=== PATIENT | male | born 1950 | race Caucasian/White ===

== ENCOUNTER 2016-08-09 12:57 | Inpatient (IN) | payer MEDICAID, OTHER ==
[2016-08-09] MEDS ORDERED: Diazepam SYRINGE* 5 MG/ML SYRINGE IV ONE (13:57)
--- NOTE | 2016-08-09 13:59 | RAD ---
HISTORY: Altered mental status COMPARISONS: April 11, 2016 VIEWS:1: Single frontal portable view of the chest at 1:40 PM FINDINGS: LINES AND TUBES: None. CARDIOMEDIASTINAL SILHOUETTE: The cardiomediastinal silhouette is normal for portable technique. PLEURA: The costophrenic angles are sharp. No pleural abnormalities are noted. LUNG PARENCHYMA: The lungs are clear. ABDOMEN: The upper abdomen is clear. There is no subphrenic gas. BONES AND SOFT TISSUES: No bone or soft tissue abnormalities are noted. IMPRESSION: NO ACTIVE CARDIOPULMONARY DISEASE.
[2016-08-09 14:07] LABS: Hematocrit 47 % (42-52); Hemoglobin 16.6 g/dl (14.0-18.0); Mean Corpuscular HGB Conc 35 g/dl (31-36); Mean Corpuscular Hemoglobin 33 pg (27-31); Mean Corpuscular Volume 93 fL (80-94); Mean Platelet Volume 7 um3 (7.4-10.4); Red Blood Count 5.08 10^6/ul (4.0-5.4); Red Cell Distribution Width 14 % (10.5-15); White Blood Count 3.9 10^3/ul (3.5-10.8)
[2016-08-09 14:11] LABS: Comments Flag Yes
[2016-08-09] MEDS ORDERED: Thiamine IV* 100 MG, Folic Acid IV* 1 MG, Multiple Vitamin IV ADULT* 10 ML in NS 0.9% 1... IV ONE (14:20)
[2016-08-09 14:24] LABS: ALT 142 U/L (7-52); AST 202 U/L (13-39); Albumin 4.3 g/dL (3.2-5.2); Alkaline Phosphatase 117 U/L (34-104); Anion Gap 10 mmol/L (2-11); BUN/Creatinine Ratio 9.5 (8-20); Blood Urea Nitrogen 7 mg/dL (6-24); C Reactive Protein 2.71 mg/L (< 5.00); CO2 Carbon Dioxide 26 mmol/L (22-32); Calcium 9.9 mg/dL (8.6-10.3); Chloride 98 mmol/L (101-111); Creatine Kinase 351 U/L (10-223); EGFR African American 137.4 (>60); EGFR Non-African American 106.8 (>60); Globulin 3.1 g/dL (2-4); Glucose 126 mg/dL (70-100); Indirect Bilirubin 1.2 mg/dL (0.3-1.0); Potassium 3.9 mmol/L (3.5-5.0); Sodium 134 mmol/L (133-145); Total Protein 7.4 g/dL (6.4-8.9)
--- NOTE | 2016-08-09 14:28 | RAD ---
HISTORY: Altered mental status COMPARISONS: April 11, 2016 TECHNIQUE: Multiple contiguous axial CT scans were obtained of the head without intravenous contrast. FINDINGS: HEMORRHAGE/INFARCT: There is no hemorrhage or acute infarct. MASSES/SHIFT: There is no mass or shift. EXTRA-AXIAL SPACES: There are no extra-axial fluid collections. SULCI AND VENTRICLES: The sulci and ventricles are normal in size and position for the patient's stated age. CEREBRUM: There are no focal parenchymal abnormalities. BRAINSTEM: There are no focal parenchymal abnormalities. CEREBELLUM: There are no focal parenchymal abnormalities. VESSELS: There is calcification of the cavernous segments of the internal carotid arteries bilaterally and of the distal vertebral arteries bilaterally. PARANASAL SINUSES: The paranasal sinuses are clear. ORBITS: The orbits are unremarkable. BONES AND SOFT TISSUE: No bone or soft tissue abnormalities are noted. OTHER: None IMPRESSION: NO ACUTE INTRACRANIAL PATHOLOGY.
[2016-08-09 14:29] LABS: Troponin I 0.06 ng/mL (<0.04)
[2016-08-09 15:05] LABS: Acetaminophen < 15 mcg/mL; Alcohol < 10 mg/dL (<10); Salicylate < 2.50 mg/dL (<30)
[2016-08-09] MEDS ORDERED: Ondansetron INJ* 2 MG/ML VIAL IV PRN (15:54)
[2016-08-09] MEDS ORDERED: NS 0.9% 1000 ML* 1,000 ML IV SCH ×2 (16:00→16:13)
[2016-08-09] MEDS ORDERED: LORazepam TAB(*) 1 MG PO SCH (16:00)
--- NOTE | 2016-08-09 16:41 | ED ---
Rigoberto Parker Erika, scribed for Roel Medel MD on 08/09/16 at 1351 . Complex/Multi-Sys Presentation - HPI Summary HPI Summary: Patient is a 65-year-old male presenting to the ED with his mother with a CC of tremors. Patient reports that at 06:00 today, he fell down. Patient denies any lightheadedness or chest pain prior to the incident. Per mother, hit his head. Mother came out and found pt tremelous. Patient has had similar tremors in the past. She also states pt was diaphoretic and had chills. Patient crawled to the couch and rested for a few hours. Mother reports that pt then started shaking, made a noise, and was drooling, and that he then fell backwards into the couch. Mother states this episode appeared to be a seizure, but pt denies Hx seizures. She states pt could not talk after the episode, and pt states he does not remember this episode. Now patient states he feels okay. He denies headache and nausea. Patient denies recent cough, abdominal pain, diarrhea, urinary symptoms , or decreased appetite. Pt does not use home O2. Hx ND x2, denies stents or CABG. Patient reports he sometimes takes ASA. He denies taking another blood thinner. Mother reports pt took all of his daily medications this morning. He denies Hx DM, renal disease, liver disease, and pancreas disease. Per mother, patient drinks vodka daily. Patient reports he has not had EtOH since 2016 at night. Patient is followed by Dr. Parsons. - History Of Current Complaint Chief Complaint: EDAltMentalStatus Time Seen by Provider: 08/09/16 13:26 Hx Obtained From: Patient, Family/Manufacturers Agent - Mother Hx From Patient Unobtainable Due To: Altered Mental Status Onset/Duration: Sudden Onset, Lasting Hours, Still Present Timing: Constant Severity Currently: Moderate Associated Signs And Symptoms: Positive: Confusion, Weakness, Other - tremors, diaphoresis. Negative: Headache, Cough, Chest Pain, Nausea, Dysuria, Decreased Oral Intake - Allergies/Home Medications Allergies/Adverse Reactions: Allergies Allergy/AdvReac Type Severity Reaction Status Date / Time No Known Allergies Allergy Verified 06/28/13 14:02 PMH/Surg Hx/FS Hx/Imm Hx Endocrine/Hematology History: Denies: Hx Diabetes, Hx Systemic Lupus Erythematosus, Hx Thyroid Disease Cardiovascular History: Reports: Hx Hypertension Denies: Hx Congestive Heart Failure, Hx Hypercholesterolemia Respiratory History: Reports: Other Respiratory Problems/Disorders Denies: Hx Asthma, Hx Chronic Obstructive Pulmonary Disease (COPD) GI History: Denies: Hx Ulcer History: Reports: Other Problems/Disorders - prostate CA Denies: Hx Dialysis, Hx Renal Disease Musculoskeletal History: Denies: Hx Rheumatoid Arthritis Sensory History: Reports: Hx Contacts or Glasses - Reading glasses Opthamlomology History: Reports: Hx Contacts or Glasses - Reading glasses Psychiatric History: Reports: Hx Substance Abuse - ETOH - Cancer History Hx Chemotherapy: No - Surgical History Surgery Procedure, Year, and Place: HYDROCCELE REPAIRED EARLY 'S, LASER EYE SURGERY,PROSTATE BX Infectious Disease History: No Infectious Disease History: Denies: Hx Hepatitis, Hx Human Immunodeficiency Virus (HIV), Traveled Outside the [place] in Last 30 Days - Family History Known Family History: Positive: Cardiac Disease, Other - CVA - Social History Lives: With Family Alcohol Use: Daily Alcohol Amount: 12oz Vodka Hx Tobacco Use: Yes Smoking Status (MU): Heavy Every Day Tobacco Smoker Type: Cigarettes Amount Used/How Often: 1/2ppd Length of Time of Smoking/Using Tobacco: 40 Review of Systems Positive: Chills, Skin Diaphoresis Negative: Chest Pain Negative: Abdominal Pain, Diarrhea, Nausea Negative: dysuria Neurological: Other - Tremors, episode of shaking, drooling, falling backwards with memory loss Positive: Weakness - unable to walk. Negative: Headache All Other Systems Reviewed And Are Negative: Yes Physical Exam Triage Information Reviewed: Yes Vital Signs On Initial Exam: Initial Vitals Temp Pulse Resp BP Pulse Ox 98.1 F 92 20 141/95 87 08/09/16 13:23 08/09/16 13:23 08/09/16 13:23 08/09/16 13:23 08/09/16 13:23 Vital Signs Reviewed: Yes Appearance: Positive: Well-Appearing - Non-toxic, No Pain Distress, Well- Nourished Skin: Positive: Warm, Skin Color Reflects Adequate Perfusion, Soft Head/Face: Positive: Normal Head/Face Inspection Eyes: Positive: EOMI, HARVINDER - Pupils 6 mm and reactive, Conjunctiva Clear ENT: Positive: Pharynx normal, TMs normal Neck: Positive: Supple, Nontender Respiratory/Lung Sounds: Positive: Clear to Auscultation, Breath Sounds Present. Negative: Rales, Rhonchi, Wheezes Cardiovascular: Positive: RRR, Pulses are Symmetrical in both Upper and Lower Extremities. Negative: Murmur, Rub Abdomen Description: Positive: Nontender, No Organomegaly, Soft. Negative: Distended, Guarding, Peritoneal Signs Bowel Sounds: Positive: Present Musculoskeletal: Positive: Strength/ROM Intact Neurological: Positive: Other - Generalized tremor worse with movement. Tongue fasciculations. Pupils 6 mm and reactive Psychiatric: Positive: Affect/Mood Appropriate - Sally Coma Scale Coma Scale Total: 14 Diagnostics - Vital Signs Vital Signs Temp Pulse Resp BP Pulse Ox 08/09/16 13:29 98.2 F 92 20 141/95 87 08/09/16 13:23 98.1 F 92 20 141/95 87 - Laboratory Lab Results: Lab Results 08/09/16 08/09/16 08/09/16 Range/Units 14:00 14:00 14:00 WBC 3.9 (3.5-10.8) 10^3/ul RBC 5.08 (4.0-5.4) 10^6/ul Hgb 16.6 (14.0-18.0) g/dl Hct 47 (42-52) % MCV 93 (80-94) fL MCH 33 H (27-31) pg MCHC 35 (31-36) g/dl RDW 14 (10.5-15) % Plt Count 54 L (150-450) 10^3/ul MPV 7 L (7.4-10.4) um3 Sodium 134 (133-145) mmol/L Potassium 3.9 (3.5-5.0) mmol/L Chloride 98 L (101-111) mmol/L Carbon Dioxide 26 (22-32) mmol/L Anion Gap 10 (2-11) mmol/L BUN 7 (6-24) mg/dL Creatinine 0.74 (0.67-1.17) mg/dL Est GFR ( Amer) 137.4 (>60) Est GFR (Non-Af Amer) 106.8 (>60) BUN/Creatinine Ratio 9.5 (8-20) Glucose 126 H (70-100) mg/dL Lactic Acid (0.5-2.0) mmol/L Calcium 9.9 (8.6-10.3) mg/dL Total Bilirubin 2.00 H (0.2-1.0) mg/dL Direct Bilirubin 0.80 H (0.03-0.18) mg/dL Indirect Bilirubin 1.2 H (0.3-1.0) mg/dL AST 202 H (13-39) U/L ALT 142 H (7-52) U/L Alkaline Phosphatase 117 H (34-104) U/L Ammonia 61 H (16-53) mol/L Total Creatine Kinase 351 H (10-223) U/L CK-MB (CK-2) 8.6 H (0.6-6.3) ng/mL Troponin I 0.06 H* (<0.04) ng/mL C-Reactive Protein 2.71 (< 5.00) mg/L Total Protein 7.4 (6.4-8.9) g/dL Albumin 4.3 (3.2-5.2) g/dL Globulin 3.1 (2-4) g/dL Albumin/Globulin Ratio 1.4 (1-3) Salicylates Pending Acetaminophen Pending Serum Alcohol Pending 08/09/16 Range/Units 14:00 WBC (3.5-10.8) 10^3/ul RBC (4.0-5.4) 10^6/ul Hgb (14.0-18.0) g/dl Hct (42-52) % MCV (80-94) fL MCH (27-31) pg MCHC (31-36) g/dl RDW (10.5-15) % Plt Count (150-450) 10^3/ul MPV (7.4-10.4) um3 Sodium (133-145) mmol/L Potassium (3.5-5.0) mmol/L Chloride (101-111) mmol/L Carbon Dioxide (22-32) mmol/L Anion Gap (2-11) mmol/L BUN (6-24) mg/dL Creatinine (0.67-1.17) mg/dL Est GFR ( Amer) (>60) Est GFR (Non-Af Amer) (>60) BUN/Creatinine Ratio (8-20) Glucose (70-100) mg/dL Lactic Acid 2.9 H* (0.5-2.0) mmol/L Calcium (8.6-10.3) mg/dL Total Bilirubin (0.2-1.0) mg/dL Direct Bilirubin (0.03-0.18) mg/dL Indirect Bilirubin (0.3-1.0) mg/dL AST (13-39) U/L ALT (7-52) U/L Alkaline Phosphatase (34-104) U/L Ammonia (16-53) mol/L Total Creatine Kinase (10-223) U/L CK-MB (CK-2) (0.6-6.3) ng/mL Troponin I (<0.04) ng/mL C-Reactive Protein (< 5.00) mg/L Total Protein (6.4-8.9) g/dL Albumin (3.2-5.2) g/dL Globulin (2-4) g/dL Albumin/Globulin Ratio (1-3) Salicylates Acetaminophen Serum Alcohol Result Diagrams: 08/09/16 14:00 08/09/16 14:00 Lab Statement: Any lab studies that have been ordered have been reviewed, and results considered in the medical decision making process. - Radiology CXR Radiology Interpretation Completed By: Radiologist - IMPRESSION: NO ACTIVE CARDIOPULMONARY DISEASE. - CT Brain CT CT Interpretation Completed By: Radiologist - IMPRESSION: NO ACUTE INTRACRANIAL PATHOLOGY. - EKG 15:29 Cardiac Rate: NL - at 85 bpm EKG Rhythm: Sinus Rhythm EKG Interpretation: T wave inversions V4-V5. No acute ischemic changes Complex Multi-Symp Course/Dx Assessment/Plan: A 65 y/o M presents to the ED s/p possible seizure and tremors. Per mother, patient drinks vodka daily, and pt reports he has not had a drink since Tuesday night. Troponin is 0.06. Lactic is 2.9. Liver enzymes are abnormal. EKG shows NSR with T wave inversions V4-V5 and no acute ischemic changes. Brain CT is negative. Case is discussed with Dr. Pratt and patient will be admitted to the hospital for further work up and management. - Diagnoses Provider Diagnoses: Tremulousness, Alcohol withdrawal, Abnormal cardiac enzyme level, Abnormal liver enzymes, possible seizure - Physician Notifications Discussed Care Of Patient With: Dr. Pratt (hospitalist) at 15:26 - agrees to admit Discharge - Discharge Plan Condition: Stable Disposition: ADMITTED TO [facility] Referrals: Ruy Parsons MD [Primary Care Provider] - The documentation as recorded by the Rigoberto lee Erika accurately reflects the service I personally performed and the decisions made by Gianfranco bundy Afoma Frances, MD.
[2016-08-09] MEDS: LORazepam TAB(*) 1 MG PO SCH (18:05)
[2016-08-09] MEDS: Atorvastatin* 10 MG TAB PO SCH (18:09)
[2016-08-09] MEDS: Carvedilol TAB* 3.125 MG PO SCH (21:49)
[2016-08-09] MEDS: QUEtiapine XR TAB* 50 MG PO SCH (21:49)
[2016-08-09 21:56] LABS: BUN/Creatinine Ratio 12.5 (8-20); EGFR African American 141.8 (>60); EGFR Non-African American 110.3 (>60); Magnesium 2.2 mg/dL (1.9-2.7); Potassium 3.2 mmol/L (3.5-5.0)
--- NOTE | 2016-08-09 22:37 | HP ---
HISTORY AND PHYSICAL: DATE OF ADMISSION: 08/09/16 PRIMARY CARE PROVIDER: Dr. Parsons. ATTENDING PHYSICIAN WHILE IN THE HOSPITAL: Dr. Matthew Pratt* (report being dictated by Clayton Arriaga NP). CHIEF COMPLAINT: Altered mental status. HISTORY OF PRESENT ILLNESS: Mr. Mclaughlin is a 65-year-old male patient. He carries a history of ETOH abuse. In addition to this, has a history of coronary artery disease, cardiomyopathy. He also has a history of hypertension , coronary artery disease, history of prostate cancer and CHF. He comes in today. He states the last time he had a drink was on Tuesday. He typically says he drinks 3 to 4 times a week and when he does drink, he drinks about a third of a bottle at a time. He does not say how big that bottle is, but he does state that he makes his drinks pretty strong. He comes in. It was noted by his mother who lives with him today that he was more shaky than normal. He could barely use his walker. In fact, she had to help him crawl down the stairs to get him to a downstairs bedroom, where she sat him on the edge of the bed. The mother was helping him get breakfast. In addition to this, she went to get his medications and by the time she came back, she noticed that the patient was stiff, staring, had drool coming out of his mouth. He would not talk to her despite her trying to shake him and get his attention. She ran out of the room, called 911. By the time 911 got there, she thinks it may have been 15 minutes, he had started coming back around. He was talking, but the EMS people had noted that his speech appeared to be slow and he appeared to be a little bit confused. He came in to the hospital. The last thing the patient remembers from this morning was going downstairs and being in the bed and getting something to eat that his mother prepared for him. He does not recall the ambulance arrive. He does remember coming into the hospital and getting into the ER bed. He denied having any recent chest pain. No recent change to medications. He said the last drink he had was on Tuesday. He denies having any nausea, vomiting, or abdominal pain. There is no dysuria. Mother said that he did not lose consciousness, but he certainly was not responsive to her. There has been no recent report of fevers or chills. Again, no chest pain or any shortness of breath. The patient came into the ER, was evaluated here, was noted that he had several lab abnormalities. In addition to this, there was concern for possible ETOH withdrawal, so the hospitalist service was asked to evaluate in admission. PAST MEDICAL HISTORY: Significant for: 1. Hypertension. 2. CAD. 3. KS. 4. ETOH abuse. 5. CHF. 6. Cardiomyopathy, last EF was 35% to 40%. 7. Prostate cancer. REVIEW OF SYSTEMS: There is no documented fever. He denied having any significant weight change. There was no double vision. He denies having any ear discharge. There was no rhinorrhea. No sore throat. No thyroid enlargement. Denied having any chest pain. There was no orthopnea. There was no nocturnal dyspnea. No abdominal pain. No nausea. No vomiting. No dysuria. No frequency. There was no loss of consciousness. There is a question of seizure activity. Review of 14 systems completed, all others negative. PHYSICAL EXAMINATION GENERAL: At this time, Mr. Mclaughlin is a 65-year-old male patient. He is well developed, well nourished. He is sitting in the ER stretcher. Does not appear to be in any acute distress. VITAL SIGNS: Blood pressure 132/92 with a pulse of 84, respirations 20, O2 sat 95%, and temperature 98.2. HEENT: Head atraumatic. Eyes: Sclerae are anicteric and not pale. Throat: Oral mucosa appears to be dry. No oropharyngeal erythema. NECK: Supple. LUNGS: Clear to auscultation. No wheezes, rales, or rhonchi. HEART: Sounds S1, S2. Regular rate and rhythm. No murmurs, rubs, or gallops. ABDOMEN: Soft, flat, nontender. Bowel sounds present. EXTREMITIES: Pulses 2+ throughout. He does have a tremor noted. He is able to move all 4 extremities with 5/5 strength. NEUROLOGIC: He is awake, he is alert, he is oriented x3. His speech is clear. Tongue midline. Unindentured Apprentice are equal. No gross focal deficits. SKIN: Intact. LABORATORY DATA AND DIAGNOSTIC STUDIES: Today revealed WBC of 3.9, RBC of 5.08 , hemoglobin 16.6, hematocrit 47, platelet count 54,000. He has been thrombocytopenic in the past. Sodium was 134, potassium 3.9, chloride of 98, bicarb 26, BUN 7, creatinine 0.74 , glucose 126, lactic 2.9, calcium 9.9. Total bili 2, direct bili 0.8, indirect 1.2. AST 202, ALT 142, alk phos 117. Ammonia was 61. CK 351. CK-MB 8.6. Troponin 0.06. Albumin 4.3. Toxicology negative. He had a brain CT which revealed no acute intracranial pathology. He did have a chest x-ray which revealed no active cardiopulmonary disease. There was an EKG which revealed a normal sinus rhythm with a rate of 83. No ST elevations or T-wave inversions. It was reviewed with the previous EKG, appears to be similar. Last echo from 2014 shows an EF of 35% to 40%. He had a liver ultrasound just done in March 2016 which showed liver is echogenic consistent with a fatty infiltration capsule that is smooth in contour. Old medical records were reviewed. ASSESSMENT AND PLAN: Mr. Mclaughlin is a 65-year-old male patient coming into the ER today with complaints of altered mental status. The hospitalist service was asked to evaluate for admission. He will be admitted under inpatient status for : 1. Altered mental status: I suspect the episode that was described today by the mother was that he probably had a seizure, probably related to alcohol withdrawal. Again, I suspect that he drinks more than what he alludes to. The patient at this point is now awake, alert, and oriented x3, but he still does have some tremors and the mother did state that he was perspiring significantly. I think at this point we will put him on the WAM and give him banana bag, put him on multivitamin, folate, and thiamine and we will continue to monitor him closely and order seizure precautions and I will order an EEG for the procedure, but again, I suspect it is probably related from the ETOH use. I am also getting an INR as well to check the synthetic function of the liver. 2. Elevated LFTs: Again, probably secondary to ETOH use. He may have some alcoholic hepatitis. We will continue to follow these. If they do not trend down, I will repeat imaging. 3. Lactic acidosis: Could be related to the liver dysfunction. In addition to this, possible seizure. I will trend these. I do not think he is actively infected. We will hydrate him. We will follow. 4. Thrombocytopenia, probably secondary to bone suppression from the ETOH use: We will continue to monitor. 5. ETOH abuse: Due to get a social work consult and he will be on a [place] protocol. 6. History of coronary artery disease and cardiomyopathy: I will continue his MAC inhibitor and his beta yony. I am holding the aspirin because of the low platelets for now, we will continue the beta yony and statin as well. 7. Hypertension: Continue medications as prescribed. 8. DVT prophylaxis: I am going to avoid heparin and the fact that the patient does have significant thrombocytopenia, we will monitor. No active signs of bruising were noted and we will continue just SCDs for the time being. 9. History of congestive heart failure: He does not appear to be in failure. We will monitor. 10. Fluids, electrolytes, and nutrition: He can have a heart healthy diet. 11. Code status: Full code. TIME SPENT: Time spent on the admission was 60 minutes; greater than half the time was spent [id number] with the patient obtaining my history and physical, other half the time spent going over the plan of care with the patient and implementing plan of care. I did discuss the plan of care with my attending, Dr. Pratt; he is in agreement. CLAYTON ARRIAGA NP CC: Dr. Parsons* [id number]/[id number] #: [id number] MARGOTH
[2016-08-10] MEDS: LORazepam TAB(*) 1 MG PO SCH ×3 (00:14→20:24)
[2016-08-10] MEDS: KCL 20 MEQ/100 ML IVPREMIX* 20 MEQ/100 ML BAG IV SCH ×2 (00:14→04:28)
[2016-08-10 06:45] LABS: Hematocrit 45 % (42-52); Hemoglobin 15.2 g/dl (14.0-18.0); Mean Corpuscular HGB Conc 34 g/dl (31-36); Mean Corpuscular Hemoglobin 33 pg (27-31); Mean Corpuscular Volume 96 fL (80-94); Mean Platelet Volume 8 um3 (7.4-10.4); Red Blood Count 4.63 10^6/ul (4.0-5.4); Red Cell Distribution Width 14 % (10.5-15); White Blood Count 4.3 10^3/ul (3.5-10.8)
[2016-08-10 06:47] LABS: Comments Flag Yes
[2016-08-10 07:05] LABS: Albumin 3.8 g/dL (3.2-5.2); BUN/Creatinine Ratio 14.3 (8-20); Direct Bilirubin 0.7 mg/dL (0.03-0.18); EGFR African American 146.5 (>60); EGFR Non-African American 113.9 (>60); Globulin 2.6 g/dL (2-4); Indirect Bilirubin 1.1 mg/dL (0.3-1.0); Potassium 3.7 mmol/L (3.5-5.0); Total Bilirubin 1.8 mg/dL (0.2-1.0); Total Protein 6.4 g/dL (6.4-8.9)
[2016-08-10] MEDS: Folic Acid TAB* 1 MG PO SCH (08:43)
[2016-08-10] MEDS: Carvedilol TAB* 3.125 MG PO SCH ×2 (08:43→20:24)
[2016-08-10] MEDS: Multivitamins/Minerals TAB PO SCH (08:43)
[2016-08-10] MEDS: Magnesium Oxide TAB* 400 MG PO SCH (08:44)
[2016-08-10] MEDS: Lisinopril TAB* 5 MG PO SCH (08:44)
[2016-08-10] MEDS: Thiamine TAB* 100 MG TAB PO SCH (08:44)
[2016-08-10] MEDS ORDERED: Multivitamins/Minerals TAB PO SCH (09:00)
[2016-08-10] MEDS ORDERED: Potassium Chlor TAB* 20 MEQ TAB.ER PO ONE (09:56)
--- NOTE | 2016-08-10 10:11 | PN ---
Subjective Date of Service: 08/10/16 Interval History: NSVT noted on tele overnight/this AM Patient seen this morning. States he is in the hospital because of tremor which was making it difficult to do ADLs at home such as cooking and feeding himself. Relayed that there was concern about a possible seizure yesterday AM but he has no recollection. Denies any history of seizures (although noted from notes from previous hospitalizations). Reports last drink was late afternoon 08/07, states he "only had a few beers". Thinks tremor is somewhat better today. Taking good PO, no N/V. Family History: Unchanged from Admission Social History: Unchanged from Admission Past Medical History: Unchanged from Admission Objective Active Medications: Atorvastatin Calcium (Lipitor*) 10 mg PO QPM SALOME Carvedilol (Coreg Tab*) 3.125 mg PO BID SALOME Folic Acid (Folvite Tab*) 1 mg PO DAILY SALOME Sodium Chloride (Ns 0.9% 1000 Ml*) 1,000 mls @ 75 mls/hr IV PER RATE SALOME Lisinopril (Prinivil Tab*) 2.5 mg PO DAILY SALOME Lorazepam (Ativan Tab(*)) 0 mg PO .PER WAM SCORE SALOME Lorazepam (Ativan Tab(*)) 2 mg PO Q12H SALOME Magnesium Oxide (Magox 400 Tab*) 400 mg PO DAILY SALOME Multivitamins/Minerals (Theragran/Minerals Tab*) 1 tab PO DAILY SALOME Ondansetron HCl (Zofran Inj*) 4 mg IV Q6H PRN Quetiapine Fumarate (Seroquel Xr Tab*) 50 mg PO BEDTIME SALOME Thiamine HCl (Vitamin B-1 Tab*) 100 mg PO DAILY SALOME Vital Signs 08/09/16 08/09/16 08/09/16 15:54 16:00 16:02 Temperature Pulse Rate 80 87 87 Respiratory 14 18 19 Rate Blood Pressure 113/83 131/88 (mmHg) O2 Sat by Pulse 96 93 95 Oximetry 08/10/16 08/10/16 08/10/16 07:51 08:34 09:58 Temperature 97.8 F Pulse Rate 87 Respiratory 18 16 20 Rate Blood Pressure 130/96 (mmHg) O2 Sat by Pulse 96 Oximetry Oxygen Devices in Use Now: None Appearance: Middle-aged, M, sitting in bed in NAD Eyes: No Scleral Icterus Ears/Nose/Mouth/Throat: Mucous Membranes Moist Neck: NL Appearance and Movements; NL JVP Respiratory: Symmetrical Chest Expansion and Respiratory Effort, Clear to Auscultation Cardiovascular: NL Sounds; No Murmurs; No JVD, RRR Abdominal: NL Sounds; No Tenderness; No Distention, No Hepatosplenomegaly Lymphatic: No Cervical Adenopathy Extremities: No Edema Skin: No Rash or Ulcers Neurological: - - Alert, oriented, no focal deficits, notable tremor in B/L hands, no tongue fasciculations Result Diagrams: 08/10/16 06:17 08/10/16 06:17 Additional Lab and Data: Lab Results 08/09/16 08/09/16 08/09/16 Range/Units 14:00 14:00 14:00 WBC 3.9 (3.5-10.8) 10^3/ul RBC 5.08 (4.0-5.4) 10^6/ul Hgb 16.6 (14.0-18.0) g/dl Hct 47 (42-52) % MCV 93 (80-94) fL MCH 33 H (27-31) pg MCHC 35 (31-36) g/dl RDW 14 (10.5-15) % Plt Count 54 L (150-450) 10^3/ul MPV 7 L (7.4-10.4) um3 Sodium 134 (133-145) mmol/L Potassium 3.9 (3.5-5.0) mmol/L Chloride 98 L (101-111) mmol/L Carbon Dioxide 26 (22-32) mmol/L Anion Gap 10 (2-11) mmol/L BUN 7 (6-24) mg/dL Creatinine 0.74 (0.67-1.17) mg/dL Est GFR ( Amer) 137.4 (>60) Est GFR (Non-Af Amer) 106.8 (>60) BUN/Creatinine Ratio 9.5 (8-20) Glucose 126 H (70-100) mg/dL Lactic Acid (0.5-2.0) mmol/L Calcium 9.9 (8.6-10.3) mg/dL Total Bilirubin 2.00 H (0.2-1.0) mg/dL Direct Bilirubin 0.80 H (0.03-0.18) mg/dL Indirect Bilirubin 1.2 H (0.3-1.0) mg/dL AST 202 H (13-39) U/L ALT 142 H (7-52) U/L Alkaline Phosphatase 117 H (34-104) U/L Ammonia 61 H (16-53) mol/L Total Creatine Kinase 351 H (10-223) U/L CK-MB (CK-2) 8.6 H (0.6-6.3) ng/mL Troponin I 0.06 H* (<0.04) ng/mL C-Reactive Protein 2.71 (< 5.00) mg/L Total Protein 7.4 (6.4-8.9) g/dL Albumin 4.3 (3.2-5.2) g/dL Globulin 3.1 (2-4) g/dL Albumin/Globulin Ratio 1.4 (1-3) Salicylates Pending Acetaminophen Pending Serum Alcohol Pending 08/09/16 Range/Units 14:00 WBC (3.5-10.8) 10^3/ul RBC (4.0-5.4) 10^6/ul Hgb (14.0-18.0) g/dl Hct (42-52) % MCV (80-94) fL MCH (27-31) pg MCHC (31-36) g/dl RDW (10.5-15) % Plt Count (150-450) 10^3/ul MPV (7.4-10.4) um3 Sodium (133-145) mmol/L Potassium (3.5-5.0) mmol/L Chloride (101-111) mmol/L Carbon Dioxide (22-32) mmol/L Anion Gap (2-11) mmol/L BUN (6-24) mg/dL Creatinine (0.67-1.17) mg/dL Est GFR ( Amer) (>60) Est GFR (Non-Af Amer) (>60) BUN/Creatinine Ratio (8-20) Glucose (70-100) mg/dL Lactic Acid 2.9 H* (0.5-2.0) mmol/L Calcium (8.6-10.3) mg/dL Total Bilirubin (0.2-1.0) mg/dL Direct Bilirubin (0.03-0.18) mg/dL Indirect Bilirubin (0.3-1.0) mg/dL AST (13-39) U/L ALT (7-52) U/L Alkaline Phosphatase (34-104) U/L Ammonia (16-53) mol/L Total Creatine Kinase (10-223) U/L CK-MB (CK-2) (0.6-6.3) ng/mL Troponin I (<0.04) ng/mL C-Reactive Protein (< 5.00) mg/L Total Protein (6.4-8.9) g/dL Albumin (3.2-5.2) g/dL Globulin (2-4) g/dL Albumin/Globulin Ratio (1-3) Salicylates Acetaminophen Serum Alcohol Assess/Plan/Problems-Billing Assessment: EtOH withdrawal with possible seizure, EtOH hepatitis in a 65 yo M with hx of HTN, CAD s/p NE, cardiomyopathy (last EF 35-40% in 11/2014), EtOH abuse - Patient Problems (1) Alcohol withdrawal Current Visit: No Comment: Suspect patient drinks more than he admits to, states last drink 08/07 in the afteroon. Continue WAM protocol. Continue Ativan taper and additional prn ativan. Continue thiamine, folate, MVM. EEG pending, ? seizure SW consult pending. (2) Elevated LFTs Current Visit: No Comment: Likely EtOH hepatitis. Trending down, no need to follow further (3) NSVT (nonsustained ventricular tachycardia) Current Visit: Yes Comment: Replete K, recheck in AM. Continue tele. On beta- yony. (4) Thrombocytopenia Current Visit: No Comment: Likely due to EtOH use. Stable. Continue to monitor. (5) Coronary artery disease Current Visit: No Comment: Cardiomyopathy. Resume ASA, platelets stable. Continue Coreg and Atorvastatin. Minimal troponin elevation, no chest pain. (6) DVT prophylaxis Current Visit: No Comment: SCDs Status and Disposition: Inpatient for EtOH withdrawal. Possible discharge in next 24-48 hours.
[2016-08-10] MEDS: Aspirin EC Low Dose* 81 MG TAB.EC PO SCH (10:30)
[2016-08-10] MEDS: Atorvastatin* 10 MG TAB PO SCH (17:18)
[2016-08-10] MEDS: QUEtiapine XR TAB* 50 MG PO SCH (20:24)
--- NOTE | 2016-08-11 01:16 | EEG ---
ELECTROENCEPHALOGRAPHY: DATE OF STUDY: 08/10/16 ORDERING PHYSICIAN: Clayton Arriaga NP LOCATION: The patient is an inpatient. CLINICAL PROBLEM: This is a 65-year-old man who came to the emergency department on 08/09/16 with altered mental status. His mother states he was more shaky than normal and could barely use his walker. She left him briefly sitting on the edge of his bed and when she came back she noticed he was stiff, staring, and had drool coming out of his mouth. He would not speak to her. She called the 911 and when the EMS got there, he began to come around. He is here with alcohol withdrawal. EEG is requested to evaluate epileptiform abnormalities. MEDICATIONS: 1. Zofran. 2. Seroquel. 3. Lipitor. 4. Vitamin B. 5. Multivitamin. 6. Magnesium oxide. 7. Lisinopril. 8. Folate. 9. Coreg. 10. Ativan. REPORT: The waking background showed appropriate organization with clearly defined [id number] voltage and frequency gradients. There was a well -defined posterior dominant rhythm of 8.5 Hz, which was symmetrical and showed normal reactivity. Often, the posterior dominant rhythm was slower in the range of 8 Hz. Anteriorly, there was an expected pattern of low voltage, irregular, mixed faster frequencies. Photic stimulation and hyperventilation were not performed. Attenuation of the occipital rhythm accompanied drowsiness. The sleep background was appropriately organized with well-developed sleep spindles and vertex waves. The sleep transients showed appropriate morphology and were bilaterally synchronous and symmetrical. Throughout the recording, there were no epileptiform discharges, focal features , paroxysmal features, or significant interhemispheric asymmetries. CLINICAL IMPRESSION: This is an essentially normal waking and sleep EEG. There are no epileptiform abnormalities. [id number]/[id number] #: [id number] [facility]
[2016-08-11 06:22] LABS: Comments Flag Yes; Hematocrit 44 % (42-52); Hemoglobin 15.2 g/dl (14.0-18.0); Mean Corpuscular HGB Conc 35 g/dl (31-36); Mean Corpuscular Hemoglobin 33 pg (27-31); Mean Corpuscular Volume 95 fL (80-94); Mean Platelet Volume 8 um3 (7.4-10.4); Red Blood Count 4.65 10^6/ul (4.0-5.4); Red Cell Distribution Width 14 % (10.5-15)
[2016-08-11 06:44] LABS: BUN/Creatinine Ratio 18.6 (8-20); Calcium 8.9 mg/dL (8.6-10.3); EGFR African American 146.5 (>60); EGFR Non-African American 113.9 (>60); Potassium 3.4 mmol/L (3.5-5.0)
[2016-08-11] MEDS: Lisinopril TAB* 5 MG PO SCH (08:16)
[2016-08-11] MEDS: Potassium Chlor TAB* 20 MEQ TAB.ER PO SCH ×3 (08:16→12:20)
[2016-08-11] MEDS: Carvedilol TAB* 3.125 MG PO SCH ×2 (08:17→20:53)
[2016-08-11] MEDS: Magnesium Oxide TAB* 400 MG PO SCH (08:18)
[2016-08-11] MEDS: Thiamine TAB* 100 MG TAB PO SCH (08:18)
[2016-08-11] MEDS: Aspirin EC Low Dose* 81 MG TAB.EC PO SCH (08:18)
[2016-08-11] MEDS: Multivitamins/Minerals TAB PO SCH (08:18)
[2016-08-11] MEDS: LORazepam TAB(*) 1 MG PO SCH (08:18)
[2016-08-11] MEDS: Folic Acid TAB* 1 MG PO SCH (08:18)
--- NOTE | 2016-08-11 09:51 | PN ---
Subjective Date of Service: 08/11/16 Interval History: Patient seen this morning. Denies any new symptoms. Thinks tremor is improving. Declined treatment programs yesterday because he doesn't "trust the government" . Does not think he drinks too much. Family History: Unchanged from Admission Social History: Unchanged from Admission Past Medical History: Unchanged from Admission Objective Active Medications: Aspirin (Aspirin Ec Low Dose*) 81 mg PO DAILY SALOME Atorvastatin Calcium (Lipitor*) 10 mg PO QPM SALOME Carvedilol (Coreg Tab*) 3.125 mg PO BID SALOME Folic Acid (Folvite Tab*) 1 mg PO DAILY SALOME Lisinopril (Prinivil Tab*) 2.5 mg PO DAILY SALOME Lorazepam (Ativan Tab(*)) 0 mg PO .PER WAM SCORE SALOME Lorazepam (Ativan Tab(*)) 2 mg PO Q12H SALOME Magnesium Oxide (Magox 400 Tab*) 400 mg PO DAILY SALOME Multivitamins/Minerals (Theragran/Minerals Tab*) 1 tab PO DAILY SALOME Ondansetron HCl (Zofran Inj*) 4 mg IV Q6H PRN Potassium Chloride (Klor Con Er Tab*) 40 meq PO Q2H SALOME Quetiapine Fumarate (Seroquel Xr Tab*) 50 mg PO BEDTIME SALOME Thiamine HCl (Vitamin B-1 Tab*) 100 mg PO DAILY [facility] Vital Signs 08/10/16 08/10/16 08/10/16 09:58 10:36 11:58 Temperature 97.7 F Pulse Rate 76 Respiratory 20 20 16 Rate Blood Pressure 127/78 (mmHg) O2 Sat by Pulse 96 Oximetry 08/11/16 08/11/16 08/11/16 04:04 07:54 08:00 Temperature 97.6 F 98.3 F Pulse Rate 77 74 Respiratory 20 16 18 Rate Blood Pressure 141/85 139/89 (mmHg) O2 Sat by Pulse 93 95 Oximetry Oxygen Devices in Use Now: None Appearance: Middle-aged, M, laying in bed in NAD Eyes: No Scleral Icterus Ears/Nose/Mouth/Throat: Mucous Membranes Moist Neck: NL Appearance and Movements; NL JVP Respiratory: Symmetrical Chest Expansion and Respiratory Effort, Clear to Auscultation Cardiovascular: NL Sounds; No Murmurs; No JVD, RRR Abdominal: NL Sounds; No Tenderness; No Distention Lymphatic: No Cervical Adenopathy Extremities: No Edema Skin: No Rash or Ulcers Neurological: Alert and Oriented x 3, - - Mild tremor in outstretched hands Result Diagrams: 08/11/16 05:47 08/11/16 05:47 Additional Lab and Data: Lab Results 08/09/16 08/09/16 08/09/16 Range/Units 14:00 14:00 14:00 WBC 3.9 (3.5-10.8) 10^3/ul RBC 5.08 (4.0-5.4) 10^6/ul Hgb 16.6 (14.0-18.0) g/dl Hct 47 (42-52) % MCV 93 (80-94) fL MCH 33 H (27-31) pg MCHC 35 (31-36) g/dl RDW 14 (10.5-15) % Plt Count 54 L (150-450) 10^3/ul MPV 7 L (7.4-10.4) um3 Sodium 134 (133-145) mmol/L Potassium 3.9 (3.5-5.0) mmol/L Chloride 98 L (101-111) mmol/L Carbon Dioxide 26 (22-32) mmol/L Anion Gap 10 (2-11) mmol/L BUN 7 (6-24) mg/dL Creatinine 0.74 (0.67-1.17) mg/dL Est GFR ( Amer) 137.4 (>60) Est GFR (Non-Af Amer) 106.8 (>60) BUN/Creatinine Ratio 9.5 (8-20) Glucose 126 H (70-100) mg/dL Lactic Acid (0.5-2.0) mmol/L Calcium 9.9 (8.6-10.3) mg/dL Total Bilirubin 2.00 H (0.2-1.0) mg/dL Direct Bilirubin 0.80 H (0.03-0.18) mg/dL Indirect Bilirubin 1.2 H (0.3-1.0) mg/dL AST 202 H (13-39) U/L ALT 142 H (7-52) U/L Alkaline Phosphatase 117 H (34-104) U/L Ammonia 61 H (16-53) mol/L Total Creatine Kinase 351 H (10-223) U/L CK-MB (CK-2) 8.6 H (0.6-6.3) ng/mL Troponin I 0.06 H* (<0.04) ng/mL C-Reactive Protein 2.71 (< 5.00) mg/L Total Protein 7.4 (6.4-8.9) g/dL Albumin 4.3 (3.2-5.2) g/dL Globulin 3.1 (2-4) g/dL Albumin/Globulin Ratio 1.4 (1-3) Salicylates Pending Acetaminophen Pending Serum Alcohol Pending 08/09/16 Range/Units 14:00 WBC (3.5-10.8) 10^3/ul RBC (4.0-5.4) 10^6/ul Hgb (14.0-18.0) g/dl Hct (42-52) % MCV (80-94) fL MCH (27-31) pg MCHC (31-36) g/dl RDW (10.5-15) % Plt Count (150-450) 10^3/ul MPV (7.4-10.4) um3 Sodium (133-145) mmol/L Potassium (3.5-5.0) mmol/L Chloride (101-111) mmol/L Carbon Dioxide (22-32) mmol/L Anion Gap (2-11) mmol/L BUN (6-24) mg/dL Creatinine (0.67-1.17) mg/dL Est GFR ( Amer) (>60) Est GFR (Non-Af Amer) (>60) BUN/Creatinine Ratio (8-20) Glucose (70-100) mg/dL Lactic Acid 2.9 H* (0.5-2.0) mmol/L Calcium (8.6-10.3) mg/dL Total Bilirubin (0.2-1.0) mg/dL Direct Bilirubin (0.03-0.18) mg/dL Indirect Bilirubin (0.3-1.0) mg/dL AST (13-39) U/L ALT (7-52) U/L Alkaline Phosphatase (34-104) U/L Ammonia (16-53) mol/L Total Creatine Kinase (10-223) U/L CK-MB (CK-2) (0.6-6.3) ng/mL Troponin I (<0.04) ng/mL C-Reactive Protein (< 5.00) mg/L Total Protein (6.4-8.9) g/dL Albumin (3.2-5.2) g/dL Globulin (2-4) g/dL Albumin/Globulin Ratio (1-3) Salicylates Acetaminophen Serum Alcohol Assess/Plan/Problems-Billing Assessment: EtOH withdrawal with possible seizure, EtOH hepatitis in a 65 yo M with hx of HTN, CAD s/p DC, cardiomyopathy (last EF 35-40% in 11/2014), EtOH abuse - Patient Problems (1) Alcohol withdrawal Current Visit: No Comment: Suspect patient drinks more than he admits to, states last drink 08/07 in the afteroon. Continue WAM protocol. Will stop taper and see how patient does on prn Ativan only. Continue thiamine, folate, MVM. EEG WNL. Appreciate SW consult, patient not interested in treatment at this time. (2) Elevated LFTs Current Visit: No Comment: Likely EtOH hepatitis. Trending down, no need to follow further (3) NSVT (nonsustained ventricular tachycardia) Current Visit: Yes Comment: Brief episode this AM. Replete K this morning. Mg stable. On beta-yony. (4) Thrombocytopenia Current Visit: No Comment: Likely due to EtOH use. Stable. Continue to monitor. (5) Coronary artery disease Current Visit: No Comment: Cardiomyopathy. Continue ASA, Coreg and Atorvastatin. (6) DVT prophylaxis Current Visit: No Comment: SCDs Status and Disposition: Inpatient for EtOH withdrawal. Possible discharge in next 24-48 hours.
[2016-08-11] MEDS: Atorvastatin* 10 MG TAB PO SCH (17:39)
[2016-08-11] MEDS: QUEtiapine XR TAB* 50 MG PO SCH (20:53)
[2016-08-12 07:52] LABS: BUN/Creatinine Ratio 19.4 (8-20); Calcium 9.1 mg/dL (8.6-10.3); EGFR African American 141.8 (>60); EGFR Non-African American 110.3 (>60); Potassium 4.1 mmol/L (3.5-5.0)
[2016-08-12 08:20] VITALS: BP 110/72
[2016-08-12] MEDS: Aspirin EC Low Dose* 81 MG TAB.EC PO SCH (08:39)
[2016-08-12] MEDS: Lisinopril TAB* 5 MG PO SCH (08:40)
[2016-08-12] MEDS: Multivitamins/Minerals TAB PO SCH (08:40)
[2016-08-12] MEDS: Carvedilol TAB* 3.125 MG PO SCH (08:40)
[2016-08-12] MEDS: Thiamine TAB* 100 MG TAB PO SCH (08:40)
[2016-08-12] MEDS: Folic Acid TAB* 1 MG PO SCH (08:40)
[2016-08-12] MEDS: Magnesium Oxide TAB* 400 MG PO SCH (08:40)
--- NOTE | 2016-08-12 09:30 | DCNOTE ---
Patient seen this morning. Says he feels well. Still a bit tremulous but improved, suspect this may be his baseline. Explained to him the importance of cessation from alcohol, still not interested in any treatment programs. On exam, RRR, s1 and s2 present, no m/g/r, abd soft, NTND, BS+, mild tremor in outstretched hands. Ambulated around the unit with walker which he has at home. Will discharge home today. F/U with PCP as outpatient.
--- NOTE | 2016-08-12 22:07 | DS ---
CC: Dr. Parsons DISCHARGE SUMMARY: DATE OF ADMISSION: 08/09/16 DATE OF DISCHARGE: 08/12/16 PCP: Dr. Parsons. PRINCIPAL DISCHARGE DIAGNOSIS: Possible alcohol withdrawal seizure. SECONDARY DIAGNOSES: 1. Hypertension. 2. Coronary artery disease. 3. Status post myocardial infarction. 4. Congestive heart failure. 5. Cardiomyopathy with an EF of 35% to 40%. 6. Prostate cancer. DISCHARGE MEDICATION REGIMEN: 1. Thiamine 100 mg by mouth daily. 2. Multivitamin 1 tablet by mouth daily. 3. Coreg 3.125 mg by mouth 2 times daily. 4. Atorvastatin 10 mg by mouth nightly. 5. Aspirin 81 mg by mouth daily. 6. Seroquel 50 mg by mouth at bedtime. 7. Magnesium oxide 400 mg by mouth daily. 8. Lisinopril 2.5 mg by mouth daily. 9. Folic acid 1 mg by mouth daily. STUDIES DONE DURING HOSPITALIZATION: Chest x-ray. Impression: No active cardiopulmonary disease. CTA of the brain without contrast. Impression: No acute intracranial pathology. EEG. Clinical impression: This is an essentially normal waking and sleeping EEG. HPI AND HOSPITAL SUMMARY: Please see the full history and physical by Clayton Arriaga NP for full de tails. Briefly, Mr. Mclaughlin is a 65-year-old male with a past medical history as above who presented to the hospital after he appeared to be more shaky than usual at home and his mother stated, he had an unresponsive episode, seems that this may have lasted about 15 minutes or so and then he began to come around. By the time he came into the hospital, he seemed to be back to baseline. It seems th at the patient likely minimizes his drinking. I believe he has a chronic tremor. However, it seeme d that he was having some withdrawal symptoms here in the hospital. In addition to that, he was alesia ated for alcohol withdrawal. He received Ativan taper as well as p.r.n. as needed for withdrawal sy mptoms. Over the following days, his symptoms improved. The patient was noted to have some few epi sodes of NSVT. His potassium and magnesium was repleted. He was continued on his beta-yony. The patient was seen by Social Work and was offered assistance with services, rehab opportunities, h owever the patient declined. I discussed this further with him and he still declined. I stressed i mportance of him stopping, drinking. However, he states that he just feels he does not drink too mu ch. The patient will be discharged home where he lives with his mother. He was ambulating around t he unit with his walker which he uses at home and seemed to be back to his baseline. The patient wi ll need to follow up with his PCP as an outpatient. TIME SPENT: Total time spent on this discharge 40 minutes. This is the summary of the hospitalization, please see the full medical record for further details. [id number] #: [id number]
== END 2016-08-12 10:10 | disposition home or self-care (01) | DRG 775 ==
LOC: ED 12:57 → MEDTELE 15:50
PROVIDERS: ADMIT Internal Medicine; ATTEND Hospitalist
PROC: 4A10X4Z Monitoring of Central Nervous Electrical Activity, External Approach (ICD-10-PCS; principal; 2016-08-10)
DX: F10.239 Alcohol dependence with withdrawal, unspecified (principal); I47.2 Ventricular tachycardia; I42.9 Cardiomyopathy, unspecified; E87.2 Acidosis; I11.0 Hypertensive heart disease with heart failure; I50.9 Heart failure, unspecified; D69.6 Thrombocytopenia, unspecified; I25.2 Old myocardial infarction; Z85.46 Personal history of malignant neoplasm of prostate; Z82.49 Family history of ischemic heart disease and other diseases of the circulatory system; Z82.3 Family history of stroke; F17.210 Nicotine dependence, cigarettes, uncomplicated; I25.10 Atherosclerotic heart disease of native coronary artery without angina pectoris; K70.10 Alcoholic hepatitis without ascites; Y90.9 Presence of alcohol in blood, level not specified; Z79.82 Long term (current) use of aspirin; R25.1 Tremor, unspecified
CPT/HCPCS: 36415; 70450; 71010; 80048; 80076; 80320; 80329; 82140; 82550; 82553; 83605; 83735; 84484; 85025; 85027; 85610; 86140; 93005; 94760; 95819; A9270-GY; G0480; J3360; J3480

== ENCOUNTER 2020-03-27 02:22 | Inpatient (IN) ==
[2020-03-27] MEDS ORDERED: NS 0.9% 1000 ml BAG 1,000 ML IV ONE (03:04)
[2020-03-27] MEDS ORDERED: Thiamine 100 MG/ML 2 ml VIAL (200 mg) IM ONE (03:09)
[2020-03-27 03:32] LABS: INR 1.05 (0.82-1.09)
[2020-03-27 03:42] LABS: Alcohol, S 37 mg/dL (<10)
[2020-03-27 03:44] LABS: ALT 207 U/L (7-52); AST 430 U/L (13-39); Albumin 4.1 g/dL (3.2-5.2); Albumin/Globulin Ratio 1.7 (1-3); Alkaline Phosphatase 91 U/L (34-104); Anion Gap 21 mmol/L (2-11); BUN/Creatinine Ratio 15.2 (8-20); Blood Urea Nitrogen 12 mg/dL (6-24); CO2 Carbon Dioxide 19 mmol/L (22-32); Calcium 9.3 mg/dL (8.6-10.3); Chloride 91 mmol/L (101-111); EGFR African American 118.4 (>60); EGFR Non-African American 97.8 (>60); Globulin 2.4 g/dL (2-4); Glucose 86 mg/dL (70-100); Magnesium 1.9 mg/dL (1.9-2.7); Potassium 3.4 mmol/L (3.5-5.0); Sodium 131 mmol/L (135-145); Total Protein 6.5 g/dL (6.4-8.9)
[2020-03-27 03:49] LABS: ABS Lymphocytes 1.1 10^3/ul (1.0-4.8); ABS Monocytes 0.4 10^3/ul (0-0.8); ABS Neutrophils 3.7 10^3/ul (1.5-7.7); Eosinophil % 0.5 %; Hematocrit 43 % (42-52); Hemoglobin 15.1 g/dL (14.0-18.0); Lymphocyte % 20.3 %; Mean Corpuscular HGB Conc 35 g/dL (31-36); Mean Corpuscular Hemoglobin 33 pg (27-31); Mean Corpuscular Volume 94 fL (80-94); Mean Platelet Volume 7.2 fL (7.4-10.4); Nucleated Red Blood Cells % 0.2; Platelet Count 92 10^3/uL (150-450); Red Blood Count 4.58 10^6 /uL (4.18-5.48); Red Cell Distribution Width 13 % (10-15); Troponin I 0.07 ng/mL (<0.03); White Blood Count 5.2 10^3/uL (3.5-10.8)
[2020-03-27] MEDS ORDERED: LORazepam 2 mg VIAL 1 ml IV PUSH ONE ×2 (03:51→03:56)
[2020-03-27] MEDS ORDERED: Lorazepam PYXIS KEY PRN ×2 (03:51→03:56)
[2020-03-27] MEDS ORDERED: Lorazepam PYXIS KEY ONE (03:54)
[2020-03-27 06:35] LABS: Urine Appearance Clear; Urine Bilirubin Negative (Negative); Urine Blood 1+ (Negative); Urine Color Yellow; Urine Glucose Negative (Negative); Urine Ketones 1+ (Negative); Urine Nitrite Negative (Negative); Urine Protein Negative (Negative); Urine Specific Gravity 1.003 (1.010-1.030); Urine Urobilinogen Negative (Negative)
[2020-03-27 06:43] LABS: Urine Bacteria Absent (Absent); Urine Red Blood Cell Trace(0-2/hpf) (Absent); Urine White Blood Cell Trace(0-5/hpf) (Absent)
[2020-03-27 06:46] LABS: Troponin I 0.07 ng/mL (<0.03)
[2020-03-27] MEDS ORDERED: NS 0.9% w/ 20 Meq KCL 1000 ml 1,000 ML IV SCH (10:00)
[2020-03-27] MEDS ORDERED: Perflutren Lipid Microsphere 3 ML VIAL ONE (10:08)
[2020-03-27 11:17] LABS: Lipase 137 U/L (11.0-82.0)
[2020-03-27 11:22] LABS: Troponin I 0.07 ng/mL (<0.03)
[2020-03-27] MEDS ORDERED: Regadenoson 0.4 MG/5 ML SYRINGE ONE (11:28)
[2020-03-27] MEDS ORDERED: Aminophylline 25 MG/ML VIAL ONE (11:28)
[2020-03-27] MEDS: Multivitamins/Minerals TAB PO SCH (13:27)
[2020-03-27] MEDS: Heparin 5000 UNITS/ML 1 mL VIAL SUBCUT SCH ×2 (14:02→20:16)
[2020-03-28] MEDS: Heparin 5000 UNITS/ML 1 mL VIAL SUBCUT SCH ×3 (05:26→22:01)
[2020-03-28 06:39] LABS: ABS Eosinophils 0.1 10^3/ul (0-0.6); ABS Lymphocytes 1.2 10^3/ul (1.0-4.8); ABS Monocytes 0.3 10^3/ul (0-0.8); ABS Neutrophils 3.3 10^3/ul (1.5-7.7); Eosinophil % 2.9 %; Hematocrit 40 % (42-52); Hemoglobin 14.1 g/dL (14.0-18.0); Lymphocyte % 23.4 %; Mean Corpuscular HGB Conc 35 g/dL (31-36); Mean Corpuscular Hemoglobin 33 pg (27-31); Mean Corpuscular Volume 94 fL (80-94); Mean Platelet Volume 7.5 fL (7.4-10.4); Nucleated Red Blood Cells % 0.1; Platelet Count 69 10^3/uL (150-450); Red Blood Count 4.28 10^6 /uL (4.18-5.48); Red Cell Distribution Width 13 % (10-15); White Blood Count 4.9 10^3/uL (3.5-10.8)
[2020-03-28 06:42] LABS: Albumin 3.5 g/dL (3.2-5.2); Calcium 8.2 mg/dL (8.6-10.3); Total Bilirubin 1.5 mg/dL (0.2-1.0)
[2020-03-28 06:48] LABS: Albumin/Globulin Ratio 1.7 (1-3); BUN/Creatinine Ratio 17.9 (8-20); EGFR African American 120.1 (>60); EGFR Non-African American 99.3 (>60); Globulin 2.1 g/dL (2-4); Total Protein 5.6 g/dL (6.4-8.9)
[2020-03-28] MEDS: Aspirin EC 81 mg TAB.EC (enteric coated) PO SCH (08:52)
[2020-03-28] MEDS: Multivitamins/Minerals TAB PO SCH (08:54)
[2020-03-28] MEDS: Potassium Chlor 10 meq TAB PO SCH ×2 (11:30→14:00)
[2020-03-28 11:37] LABS: Urine Benzodiazepine Screen None Detected (None Detect); Urine Cannabinoids Screen None Detected (None Detect); Urine Opiates Screen None Detected (None Detect)
[2020-03-28 18:49] LABS: BUN/Creatinine Ratio 16.5 (8-20); Calcium 8.5 mg/dL (8.6-10.3); EGFR African American 118.4 (>60); EGFR Non-African American 97.8 (>60); Potassium 3.2 mmol/L (3.5-5.0)
[2020-03-28] MEDS: KCL 20 MEQ/100 ML IVPREMIX 20 MEQ/100 ML BAG IV SCH (22:06)
[2020-03-29] MEDS: KCL 20 MEQ/100 ML IVPREMIX 20 MEQ/100 ML BAG IV SCH (01:04)
[2020-03-29 05:35] LABS: BUN/Creatinine Ratio 15.9 (8-20); Calcium 8.3 mg/dL (8.6-10.3); EGFR African American 138.4 (>60); EGFR Non-African American 114.4 (>60); Potassium 3.6 mmol/L (3.5-5.0)
[2020-03-29] MEDS: Heparin 5000 UNITS/ML 1 mL VIAL SUBCUT SCH ×3 (06:07→21:35)
[2020-03-29] MEDS: Aspirin EC 81 mg TAB.EC (enteric coated) PO SCH (07:31)
[2020-03-29] MEDS: Multivitamins/Minerals TAB PO SCH (07:32)
[2020-03-29] MEDS: Potassium Chlor 10 meq TAB PO SCH ×2 (12:53→21:35)
[2020-03-30 05:43] LABS: BUN/Creatinine Ratio 17.5 (8-20); Calcium 8.7 mg/dL (8.6-10.3); EGFR African American 153.7 (>60); Potassium 3.5 mmol/L (3.5-5.0)
[2020-03-30] MEDS: Heparin 5000 UNITS/ML 1 mL VIAL SUBCUT SCH (05:55)
[2020-03-30] MEDS: Aspirin EC 81 mg TAB.EC (enteric coated) PO SCH (10:15)
[2020-03-30] MEDS: Potassium Chlor 10 meq TAB PO SCH (10:15)
[2020-03-30] MEDS: Multivitamins/Minerals TAB PO SCH (10:15)
[2020-03-30 13:35] VITALS: BP 127/82
== END 2020-03-30 14:55 | disposition home or self-care (01) | DRG 303 ==
LOC: MEDTELE 02:22 → ED 02:22 → MEDTELE 10:39
PROVIDERS: ADMIT Internal Medicine; ATTEND Internal Medicine

== ENCOUNTER 2020-10-16 18:45 | Inpatient (IN) ==
[2020-10-16 21:20] LABS: ABS Lymphocytes 1.1 10^3/ul (1.0-4.8); ABS Monocytes 0.4 10^3/ul (0-0.8); ABS Neutrophils 2.8 10^3/ul (1.5-7.7); Eosinophil % 0.7 %; Hematocrit 42 % (42-52); Hemoglobin 14.5 g/dL (14.0-18.0); Lymphocyte % 24.2 %; Mean Corpuscular HGB Conc 35 g/dL (31-36); Mean Corpuscular Hemoglobin 35 pg (27-31); Mean Corpuscular Volume 100 fL (80-94); Mean Platelet Volume 6.7 fL (7.4-10.4); Nucleated Red Blood Cells % 0.1; Platelet Count 102 10^3/uL (150-450); Red Blood Count 4.19 10^6 /uL (4.18-5.48); Red Cell Distribution Width 15 % (10-15); White Blood Count 4.3 10^3/uL (3.5-10.8)
[2020-10-16 21:32] LABS: Activated Partial Thrombo Time 30.4 seconds (26.0-38.0); INR 1.13 (0.82-1.09)
[2020-10-16 21:36] LABS: Urine Appearance Clear; Urine Bilirubin Negative (Negative); Urine Blood 2+ (Negative); Urine Color Yellow; Urine Glucose Negative (Negative); Urine Ketones Negative (Negative); Urine Nitrite Negative (Negative); Urine Protein Negative (Negative); Urine Specific Gravity 1.003 (1.002-1.030); Urine Urobilinogen Negative (Negative)
[2020-10-16 21:42] LABS: Urine Bacteria Absent (Absent); Urine Red Blood Cell Trace(0-2/hpf) (Absent); Urine White Blood Cell Absent (Absent)
[2020-10-16 21:45] LABS: ALT 123 U/L (7-52); AST 145 U/L (13-39); Albumin 3.5 g/dL (3.2-5.2); Albumin/Globulin Ratio 1.4 (1-3); Alkaline Phosphatase 134 U/L (35-149); Anion Gap 13 mmol/L (2-11); Blood Urea Nitrogen 5 mg/dL (6-24); C Reactive Protein 28.71 mg/L (<8.01); CO2 Carbon Dioxide 24 mmol/L (22-32); Calcium 7.7 mg/dL (8.6-10.3); Chloride 102 mmol/L (101-111); Creatine Kinase 316 U/L (10-223); EGFR African American 172.5 (>60); EGFR Non-African American 142.6 (>60); Globulin 2.5 g/dL (2-4); Glucose 97 mg/dL (70-100); Potassium 3.6 mmol/L (3.5-5.0); Sodium 139 mmol/L (135-145)
[2020-10-16] MEDS ORDERED: NS 0.9% 1000 ml BAG 1,000 ML IV ONE (21:45)
[2020-10-16 21:49] LABS: Troponin I 0.05 ng/mL (<0.03)
[2020-10-16 22:32] LABS: Alcohol, S 323 mg/dL (<10)
[2020-10-16] MEDS ORDERED: Thiamine 100 MG/ML 2 ml VIAL (200 mg) IM ONE (23:12)
[2020-10-16] MEDS ORDERED: Multivitamins/Minerals TAB PO SCH (23:45)
[2020-10-17 00:04] LABS: Magnesium 1.7 mg/dL (1.9-2.7)
[2020-10-17 00:07] LABS: Vitamin B12 780 pg/mL (180-914)
[2020-10-17 01:17] LABS: Troponin I 0.05 ng/mL (<0.03)
[2020-10-17] MEDS ORDERED: Magnesium Sulfate IV 3 GM in NS 0.9% 100 ml BAG 100 ML IVPB ONE (02:04)
[2020-10-17] MEDS ORDERED: Enoxaparin 40 MG/0.4 ML SYR SUBCUT SCH (03:00)
[2020-10-17 04:28] LABS: ABS Lymphocytes 0.8 10^3/ul (1.0-4.8); ABS Monocytes 0.4 10^3/ul (0-0.8); ABS Neutrophils 2.7 10^3/ul (1.5-7.7); Eosinophil % 0.8 %; Hematocrit 38 % (42-52); Hemoglobin 13.3 g/dL (14.0-18.0); Lymphocyte % 20.8 %; Mean Corpuscular HGB Conc 35 g/dL (31-36); Mean Corpuscular Hemoglobin 35 pg (27-31); Mean Corpuscular Volume 100 fL (80-94); Red Blood Count 3.83 10^6 /uL (4.18-5.48); Red Cell Distribution Width 15 % (10-15)
[2020-10-17 04:46] LABS: Albumin 3.2 g/dL (3.2-5.2); Albumin/Globulin Ratio 1.5 (1-3); Calcium 7.3 mg/dL (8.6-10.3); EGFR African American 196.2 (>60); EGFR Non-African American 162.1 (>60); Globulin 2.1 g/dL (2-4); Potassium 3.6 mmol/L (3.5-5.0); Total Bilirubin 0.9 mg/dL (0.2-1.0); Total Protein 5.3 g/dL (6.4-8.9)
[2020-10-17 04:55] LABS: Troponin I 0.05 ng/mL (<0.03)
[2020-10-17 05:55] LABS: Mean Platelet Volume 6.6 fL (7.4-10.4); Platelet Count 90 10^3/uL (150-450)
[2020-10-17 07:19] LABS: Magnesium 2.5 mg/dL (1.9-2.7)
[2020-10-17] MEDS: Aspirin EC 81 mg TAB.EC (enteric coated) PO SCH (08:30)
[2020-10-17] MEDS: Multivitamins/Minerals TAB PO SCH (08:30)
[2020-10-18] MEDS: Multivitamins/Minerals TAB PO SCH (07:36)
[2020-10-18] MEDS: Aspirin EC 81 mg TAB.EC (enteric coated) PO SCH (07:36)
[2020-10-18 22:38] LABS: Calcium 8.3 mg/dL (8.6-10.3); EGFR African American 187.6 (>60); EGFR Non-African American 155.1 (>60); Magnesium 1.9 mg/dL (1.9-2.7); Potassium 3.6 mmol/L (3.5-5.0)
[2020-10-18] MEDS ORDERED: Magnesium Sulfate 2 gm BAG 2 GM/50 ML BAG IVPB ONE (23:37)
[2020-10-19] MEDS: KCL 20 MEQ/100 ML IVPREMIX 20 MEQ/100 ML BAG IV SCH ×2 (02:43→08:57)
[2020-10-19] MEDS: Aspirin EC 81 mg TAB.EC (enteric coated) PO SCH (08:55)
[2020-10-19] MEDS: Multivitamins/Minerals TAB PO SCH (08:55)
[2020-10-20] MEDS: Aspirin EC 81 mg TAB.EC (enteric coated) PO SCH (09:15)
[2020-10-20] MEDS: Multivitamins/Minerals TAB PO SCH (09:15)
[2020-10-21 06:19] LABS: Calcium 8.3 mg/dL (8.6-10.3); EGFR African American 187.6 (>60); EGFR Non-African American 155.1 (>60); Magnesium 1.7 mg/dL (1.9-2.7); Potassium 3.4 mmol/L (3.5-5.0)
[2020-10-21] MEDS ORDERED: Potassium Chlor 20 meq TAB.ER PO ONE (07:19)
[2020-10-21] MEDS ORDERED: Magnesium Sulfate IV 1GM/100ML 1 GM/100 ML BAG IV ONE (07:20)
[2020-10-21] MEDS: Aspirin EC 81 mg TAB.EC (enteric coated) PO SCH (08:16)
[2020-10-21] MEDS: Multivitamins/Minerals TAB PO SCH (08:17)
[2020-10-21 12:09] VITALS: BP 118/77
== END 2020-10-21 11:59 | disposition home or self-care (01) | DRG 897 ==
LOC: ED 18:45 → MEDTELE 10-17 00:52
PROVIDERS: ADMIT Internal Medicine; ATTEND Internal Medicine

== ENCOUNTER 2021-03-06 17:53 | Inpatient (IN) ==
[2021-03-06] MEDS ORDERED: Lactated Ringers 1000 ml BAG 1,000 ML IV ONE (19:14)
[2021-03-06 19:20] LABS: ABS Basophils 0.1 10^3/ul (0-0.2); ABS Lymphocytes 1.1 10^3/ul (1.0-4.8); ABS Monocytes 0.4 10^3/ul (0-0.8); ABS Neutrophils 2.9 10^3/ul (1.5-7.7); Eosinophil % 0.8 %; Hematocrit 43 % (42-52); Hemoglobin 15.4 g/dL (14.0-18.0); Lymphocyte % 24.1 %; Mean Corpuscular HGB Conc 36 g/dL (31-36); Mean Corpuscular Hemoglobin 35 pg (27-31); Mean Corpuscular Volume 96 fL (80-94); Mean Platelet Volume 5.9 fL (7.4-10.4); Nucleated Red Blood Cells % 0.1; Platelet Count 157 10^3/uL (150-450); Red Blood Count 4.45 10^6 /uL (4.18-5.48); Red Cell Distribution Width 14 % (10-15); White Blood Count 4.5 10^3/uL (3.5-10.8)
[2021-03-06 19:31] LABS: INR 1.18 (0.86-1.15)
[2021-03-06 19:36] LABS: Albumin 3.7 g/dL (3.2-5.2); Albumin/Globulin Ratio 1.2 (1-3); Calcium 8.2 mg/dL (8.6-10.3); Magnesium 1.7 mg/dL (1.9-2.7); Potassium 3.3 mmol/L (3.5-5.0); Total Bilirubin 1.6 mg/dL (0.2-1.0); Total Protein 6.7 g/dL (6.4-8.9)
[2021-03-06] MEDS ORDERED: Potassium Chlor 20 meq TAB.ER PO ONE (20:01)
[2021-03-06] MEDS ORDERED: Lorazepam PYXIS KEY PRN (23:43)
[2021-03-06] MEDS ORDERED: LORazepam 2 mg VIAL 1 ml IV PUSH SCH (23:45)
[2021-03-07] MEDS ORDERED: Magnesium Sulfate IV 3 GM in NS 0.9% 100 ml BAG 100 ML IVPB ONE (01:18)
[2021-03-07] MEDS ORDERED: Lorazepam PYXIS KEY PRN (02:09)
[2021-03-07 02:17] LABS: Rapid COVID-19 Molecular Undetected (Undetected)
[2021-03-07] MEDS: LORazepam 2 mg VIAL 1 ml IV PUSH PRN ×2 (03:43→08:03)
[2021-03-07 04:26] LABS: PSA Screening Total 50.237 ng/mL (0-4.000)
[2021-03-07 06:01] LABS: ABS Basophils 0.1 10^3/ul (0-0.2); ABS Lymphocytes 0.9 10^3/ul (1.0-4.8); ABS Monocytes 0.4 10^3/ul (0-0.8); ABS Neutrophils 2.7 10^3/ul (1.5-7.7); Eosinophil % 0.8 %; Hematocrit 37 % (42-52); Lymphocyte % 21.4 %; Mean Corpuscular HGB Conc 35 g/dL (31-36); Mean Corpuscular Hemoglobin 34 pg (27-31); Mean Corpuscular Volume 96 fL (80-94); Mean Platelet Volume 6.1 fL (7.4-10.4); Nucleated Red Blood Cells % 0.2; Platelet Count 133 10^3/uL (150-450); Red Blood Count 3.83 10^6 /uL (4.18-5.48); Red Cell Distribution Width 14 % (10-15)
[2021-03-07 06:19] LABS: Calcium 7.9 mg/dL (8.6-10.3); Magnesium 2.4 mg/dL (1.9-2.7); Potassium 3.4 mmol/L (3.5-5.0)
[2021-03-07] MEDS: Aspirin EC 81 mg TAB.EC (enteric coated) PO SCH (08:03)
[2021-03-07] MEDS: Multivitamins/Minerals TAB PO SCH (08:03)
[2021-03-07 09:22] LABS: Albumin 3.3 g/dL (3.2-5.2); Albumin/Globulin Ratio 1.3 (1-3); Direct Bilirubin 0.4 mg/dL (0.03-0.18); Globulin 2.5 g/dL (2-4); Indirect Bilirubin 0.9 mg/dL (0.3-1.0); Total Bilirubin 1.3 mg/dL (0.2-1.0); Total Protein 5.8 g/dL (6.4-8.9)
[2021-03-07] MEDS: Enoxaparin 40 MG/0.4 ML SYR SUBCUT SCH (09:56)
[2021-03-08] MEDS: Multivitamins/Minerals TAB PO SCH (08:17)
[2021-03-08] MEDS: Aspirin EC 81 mg TAB.EC (enteric coated) PO SCH (08:17)
[2021-03-08] MEDS: Enoxaparin 40 MG/0.4 ML SYR SUBCUT SCH (12:27)
[2021-03-08] MEDS ORDERED: Potassium Chlor 20 meq TAB.ER PO ONE (22:16)
[2021-03-09 05:33] LABS: Calcium 8.7 mg/dL (8.6-10.3); Magnesium 1.8 mg/dL (1.9-2.7); Potassium 3.7 mmol/L (3.5-5.0)
[2021-03-09] MEDS ORDERED: Magnesium Sulfate IV 1GM/100ML 1 GM/100 ML BAG IV ONE (07:24)
[2021-03-09 08:23] LABS: Folate 18.69 ng/mL (5.90-24.80)
[2021-03-09] MEDS: Aspirin EC 81 mg TAB.EC (enteric coated) PO SCH (09:01)
[2021-03-09] MEDS: Multivitamins/Minerals TAB PO SCH (09:01)
[2021-03-09] MEDS: Enoxaparin 40 MG/0.4 ML SYR SUBCUT SCH (10:29)
[2021-03-09] MEDS ORDERED: Potassium Chlor 20 meq TAB.ER PO ONE (21:00)
[2021-03-10 08:43] LABS: Calcium 8.8 mg/dL (8.6-10.3); Potassium 4.1 mmol/L (3.5-5.0)
[2021-03-10] MEDS: Aspirin EC 81 mg TAB.EC (enteric coated) PO SCH (10:22)
[2021-03-10] MEDS: Multivitamins/Minerals TAB PO SCH (10:22)
[2021-03-10] MEDS: Enoxaparin 40 MG/0.4 ML SYR SUBCUT SCH (10:24)
[2021-03-11] MEDS: Multivitamins/Minerals TAB PO SCH (08:20)
[2021-03-11] MEDS: Aspirin EC 81 mg TAB.EC (enteric coated) PO SCH (08:20)
[2021-03-11] MEDS: Enoxaparin 40 MG/0.4 ML SYR SUBCUT SCH (12:33)
[2021-03-12 07:22] VITALS: BP 105/64
[2021-03-12] MEDS: Aspirin EC 81 mg TAB.EC (enteric coated) PO SCH (07:40)
[2021-03-12] MEDS: Multivitamins/Minerals TAB PO SCH (07:40)
[2021-03-12] MEDS: Enoxaparin 40 MG/0.4 ML SYR SUBCUT SCH (10:22)
== END 2021-03-12 10:55 | disposition home or self-care (01) | DRG 897 ==
LOC: EDHOLD 17:53 → ED 17:53 → SUATTDRO 03-07 01:53 → MEDTELE 03-07 05:13
PROVIDERS: ADMIT Internal Medicine; ATTEND Internal Medicine

== ENCOUNTER 2021-07-18 15:04 | Inpatient (IN) ==
[2021-07-18] MEDS ORDERED: NS 0.9% 1000 ml BAG 1,000 ML IV.FLUID IV ONE (15:19)
[2021-07-18] MEDS ORDERED: Lactated Ringers 1000 ml BAG 1,000 ML IV ONE ×3 (15:29→16:02)
[2021-07-18] MEDS ORDERED: Vancomycin 1,000 MG in NS 0.9% 250 ml 250 ML IVPB ONE (15:31)
[2021-07-18] MEDS ORDERED: Piperacillin/Tazobac ADVAN 3.375 GM in NS 0.9% 100 ml BAG 100 ML IV ONE (15:31)
[2021-07-18 16:00] LABS: Activated Partial Thrombo Time 39.7 seconds (26.0-38.0); INR 2.59 (0.86-1.15)
[2021-07-18 16:12] LABS: ABS Eosinophils 0.2 10^3/ul (0-0.6); ABS Lymphocytes 1.6 10^3/ul (1.0-4.8); ABS Monocytes 1.2 10^3/ul (0-0.8); ABS Neutrophils 18.1 10^3/ul (1.5-7.7); Eosinophil % 1.1 %; Hematocrit 34 % (42-52); Lymphocyte % 7.6 %; Mean Corpuscular HGB Conc 35 g/dL (31-36); Mean Corpuscular Hemoglobin 35 pg (27-31); Mean Corpuscular Volume 102 fL (80-94); Red Blood Count 3.38 10^6 /uL (4.18-5.48); Red Cell Distribution Width 15 % (10-15); White Blood Count 21.2 10^3/uL (3.5-10.8)
[2021-07-18 16:24] LABS: ALT 53 U/L (7-52); AST 91 U/L (13-39); Albumin 2.2 g/dL (3.2-5.2); Albumin/Globulin Ratio 1.5 (1-3); Alkaline Phosphatase 193 U/L (35-149); Blood Urea Nitrogen 42 mg/dL (6-24); C Reactive Protein 61.32 mg/L (<8.01); CO2 Carbon Dioxide 28 mmol/L (22-32); Calcium 7.6 mg/dL (8.6-10.3); Chloride 84 mmol/L (101-111); Globulin 1.5 g/dL (2-4); Glucose 90 mg/dL (70-100); Lipase 30 U/L (11.0-82.0); Sodium 122 mmol/L (135-145); Total Protein 3.7 g/dL (6.4-8.9); eGFR CKD-EPI 26.2 (>60)
[2021-07-18 16:25] LABS: Anion Gap 10 mmol/L (2-11); Potassium 5.3 mmol/L (3.5-5.0)
[2021-07-18 16:33] LABS: Platelet Count Platelets clumped. 10^3/uL (150-450)
[2021-07-18] MEDS ORDERED: Norepinephrine 16MCG/ML BAG NS 4,000 MCG/250 ML BAG IV ONE (16:34)
[2021-07-18] MEDS ORDERED: Norepinephrine 16MCG/ML BAG NS 4,000 MCG/250 ML BAG IV SCH (17:00)
[2021-07-18 17:05] LABS: Mean Platelet Volume 7.6 fL (7.4-10.4); Platelet Count 292 10^3/uL (150-450)
[2021-07-18 17:18] LABS: Body Fluid Color Yellow; Body Fluid Source Peritonial Fluid
[2021-07-18 17:19] LABS: Body Fluid Appearance Cloudy
[2021-07-18] MEDS ORDERED: ALBUMIN HUMAN 25% IV ONE (17:26)
[2021-07-18 17:30] LABS: High Sensitivity Troponin 1 Hr 27 pg/mL (<20)
[2021-07-18 17:45] LABS: Indirect Bilirubin 11.1 mg/dL (0.3-1.0)
[2021-07-18] MEDS ORDERED: Octreotide Acetate 500 MCG in NS 0.9% 100 ml BAG 100 ML IV ONE (18:00)
[2021-07-18 18:01] LABS: Urine Appearance Cloudy; Urine Bacteria 1+ (Absent); Urine Bilirubin 2+ (Negative); Urine Blood Negative (Negative); Urine Color Amber; Urine Glucose 1+(50 mg/dL) (Negative); Urine Ketones Negative (Negative); Urine Nitrite Negative (Negative); Urine Protein Negative (Negative); Urine Red Blood Cell 1+(3-5/hpf) (Absent); Urine Specific Gravity 1.014 (1.002-1.030); Urine Urobilinogen Positive (Negative); Urine White Blood Cell 3+(>20/hpf) (Absent)
[2021-07-18 18:42] LABS: Body Fluid Mono 67 %; Body Fluid Other Cells 13; Body Fluid Total Cells Counted 200
[2021-07-18 18:44] LABS: Body Fluid WBC 104 /mcL
[2021-07-18 21:35] LABS: Alcohol, S < 13 mg/dL (<13)
[2021-07-18] MEDS: Albumin Human 25% 25 GM/100 ML BTL IV SCH ×3 (22:27→22:47)
[2021-07-18] MEDS: Pantoprazole VIAL 40 MG VIAL IV SCH (22:38)
[2021-07-18] MEDS ORDERED: Albumin Human 25% 75 GM/300 ML BTL IV ONE (22:39)
[2021-07-18] MEDS ORDERED: cefTRIAXone 2 GM ADDV.VIAL 2 GM in NS 0.9% 100 ml BAG 100 ML IV SCH (23:00)
[2021-07-18] MEDS: Octreotide Acetate 500 MCG in NS 0.9% 100 ml BAG 100 ML IV SCH (23:47)
[2021-07-18] MEDS: Norepinephrine 16MCG/ML BAG NS 4,000 MCG/250 ML BAG IV SCH (23:47)
[2021-07-19] MEDS: Albumin Human 25% 25 GM/100 ML BTL IV SCH ×2 (00:07→02:27)
[2021-07-19] MEDS: Norepinephrine 16MCG/ML BAG NS 4,000 MCG/250 ML BAG IV SCH ×3 (01:47→08:55)
[2021-07-19] MEDS: Octreotide Acetate 500 MCG in NS 0.9% 100 ml BAG 100 ML IV SCH ×3 (04:15→23:51)
[2021-07-19 04:30] LABS: Hematocrit 30 % (42-52); Hemoglobin 10.7 g/dL (14.0-18.0); Mean Corpuscular HGB Conc 35 g/dL (31-36); Mean Corpuscular Hemoglobin 36 pg (27-31); Mean Corpuscular Volume 101 fL (80-94); Mean Platelet Volume 7.1 fL (7.4-10.4); Platelet Count 319 10^3/uL (150-450); Red Blood Count 3.03 10^6 /uL (4.18-5.48); Red Cell Distribution Width 15 % (10-15); White Blood Count 23.9 10^3/uL (3.5-10.8)
[2021-07-19 04:46] LABS: ABS Eosinophils 0.3 10^3/ul (0-0.6); ABS Lymphocytes 1.3 10^3/ul (1.0-4.8); ABS Monocytes 1.1 10^3/ul (0-0.8); ABS Neutrophils 21.1 10^3/ul (1.5-7.7); Eosinophil % 1.1 %; Lymphocyte % 5.6 %
[2021-07-19 05:23] LABS: Albumin 3.1 g/dL (3.2-5.2); Albumin/Globulin Ratio 3.4 (1-3); Calcium 7.3 mg/dL (8.6-10.3); Globulin 0.9 g/dL (2-4); Potassium 4.6 mmol/L (3.5-5.0); eGFR CKD-EPI 31.8 (>60)
[2021-07-19 05:38] LABS: Total Bilirubin 23.9 mg/dL (0.2-1.0)
[2021-07-19 05:40] LABS: Magnesium 1.9 mg/dL (1.9-2.7)
[2021-07-19 05:42] LABS: Direct Bilirubin 15.6 mg/dL (0.03-0.18); Indirect Bilirubin 8.3 mg/dL (0.3-1.0)
[2021-07-19] MEDS: Pantoprazole VIAL 40 MG VIAL IV SCH ×2 (08:00→19:55)
[2021-07-19] MEDS: Lactulose 30 ml UDC PO SCH ×3 (08:00→19:55)
[2021-07-19] MEDS: Multivitamins/Minerals TAB PO SCH (08:00)
[2021-07-19] MEDS: Aspirin EC 81 mg TAB.EC (enteric coated) PO SCH (08:00)
[2021-07-19] MEDS ORDERED: Piperacillin/Tazobac ADVAN 3.375 GM in NS 0.9% 100 ml BAG 100 ML IV ONE (14:42)
[2021-07-19] MEDS: Norepinephrine *QUAD STRENGTH* 16 mg/250 mL NS per protocol IV SCH (14:54)
[2021-07-19] MEDS ORDERED: Zosyn per Pharmacy NOTE FOLLOW UP SCH (15:00)
[2021-07-19] MEDS ORDERED: ALBUMIN HUMAN 25% IV ONE (19:30)
[2021-07-19] MEDS ORDERED: Albumin Human 25% 25 GM/100 ML BTL IV SCH (19:30)
[2021-07-19] MEDS ORDERED: Albumin Human 25% 75 GM/300 ML BTL IV ONE (19:30)
[2021-07-19] MEDS: ZOSYN 3.375 GM Q8H per EXTENDED INFUSION IV SCH (19:55)
[2021-07-19] MEDS ORDERED: Albumin Human 25% 25 GM/100 ML IV ONE ×2 (20:00→22:00)
[2021-07-20] MEDS ORDERED: Albumin Human 25% 25 GM/100 ML BTL IV ONE
[2021-07-20] MEDS: ZOSYN 3.375 GM Q8H per EXTENDED INFUSION IV SCH ×3 (02:26→20:03)
[2021-07-20 04:43] LABS: Hematocrit 27 % (42-52); Hemoglobin 9.6 g/dL (14.0-18.0); Mean Corpuscular HGB Conc 35 g/dL (31-36); Mean Corpuscular Hemoglobin 35 pg (27-31); Mean Corpuscular Volume 101 fL (80-94); Platelet Count 245 10^3/uL (150-450); Red Cell Distribution Width 15 % (10-15)
[2021-07-20 05:17] LABS: Calcium 7.3 mg/dL (8.6-10.3); Potassium 3.6 mmol/L (3.5-5.0); eGFR CKD-EPI 33.5 (>60)
[2021-07-20 05:54] LABS: Magnesium 1.9 mg/dL (1.9-2.7)
[2021-07-20] MEDS: Aspirin EC 81 mg TAB.EC (enteric coated) PO SCH (09:25)
[2021-07-20] MEDS: Lactulose 30 ml UDC PO SCH ×3 (09:26→20:02)
[2021-07-20] MEDS: Multivitamins/Minerals TAB PO SCH (09:26)
[2021-07-20] MEDS: Pantoprazole VIAL 40 MG VIAL IV SCH ×2 (09:26→20:02)
[2021-07-20] MEDS: Octreotide Acetate 500 MCG in NS 0.9% 100 ml BAG 100 ML IV SCH ×2 (11:18→20:02)
[2021-07-20 14:59] LABS: Hematocrit 31 % (42-52); Hemoglobin 10.4 g/dL (14.0-18.0)
[2021-07-20] MEDS: Norepinephrine *QUAD STRENGTH* 16 mg/250 mL NS per protocol IV SCH (17:11)
[2021-07-20] MEDS ORDERED: Albumin Human 25% 75 GM/300 ML BTL IV ONE (19:30)
[2021-07-20] MEDS ORDERED: Albumin Human 25% 25 GM/100 ML BTL IV SCH (19:30)
[2021-07-20] MEDS ORDERED: ALBUMIN HUMAN 25% IV ONE (19:30)
[2021-07-21] MEDS: ZOSYN 3.375 GM Q8H per EXTENDED INFUSION IV SCH ×3 (04:05→22:00)
[2021-07-21] MEDS: Octreotide Acetate 500 MCG in NS 0.9% 100 ml BAG 100 ML IV SCH (06:19)
[2021-07-21] MEDS: Aspirin EC 81 mg TAB.EC (enteric coated) PO SCH (09:13)
[2021-07-21] MEDS: Pantoprazole VIAL 40 MG VIAL IV SCH ×2 (09:13→22:00)
[2021-07-21] MEDS: Lactulose 30 ml UDC PO SCH ×3 (09:13→22:00)
[2021-07-21] MEDS: Multivitamins/Minerals TAB PO SCH (09:13)
[2021-07-21 15:25] LABS: Glucose, BF 110 mg/dL
[2021-07-21 15:27] LABS: Total Protein, BF 0.7 g/dL
[2021-07-21] MEDS: Octreotide Acetate 50 MCG/ML ML SUBCUT SCH (22:02)
[2021-07-22] MEDS: ZOSYN 3.375 GM Q8H per EXTENDED INFUSION IV SCH ×2 (03:21→12:17)
[2021-07-22] MEDS ORDERED: Flu vaccine *QUAD* 2021-22* 0.5 ML SYRINGE IM ONE (09:00)
[2021-07-22] MEDS ORDERED: Pneumococcal Vac 23-Polyvalent IM ONE (09:00)
[2021-07-22] MEDS: Lactulose 30 ml UDC PO SCH ×3 (09:27→21:02)
[2021-07-22] MEDS: Pantoprazole VIAL 40 MG VIAL IV SCH ×2 (09:27→21:02)
[2021-07-22] MEDS: Aspirin EC 81 mg TAB.EC (enteric coated) PO SCH (09:28)
[2021-07-22 09:52] LABS: ABS Basophils 0.1 10^3/ul (0-0.2); ABS Eosinophils 0.5 10^3/ul (0-0.6); ABS Lymphocytes 1.2 10^3/ul (1.0-4.8); ABS Monocytes 0.8 10^3/ul (0-0.8); ABS Neutrophils 14.5 10^3/ul (1.5-7.7); Eosinophil % 2.8 %; Hematocrit 30 % (42-52); Hemoglobin 10.5 g/dL (14.0-18.0); Mean Corpuscular HGB Conc 35 g/dL (31-36); Mean Corpuscular Hemoglobin 35 pg (27-31); Mean Corpuscular Volume 101 fL (80-94); Mean Platelet Volume 7.3 fL (7.4-10.4); Platelet Count 179 10^3/uL (150-450); Red Blood Count 2.99 10^6 /uL (4.18-5.48); Red Cell Distribution Width 15 % (10-15)
[2021-07-22] MEDS: Octreotide Acetate 50 MCG/ML ML SUBCUT SCH (09:57)
[2021-07-22 10:29] LABS: Albumin 2.7 g/dL (3.2-5.2); Calcium 7.6 mg/dL (8.6-10.3); Globulin 0.9 g/dL (2-4); Potassium 3.2 mmol/L (3.5-5.0); Total Protein 3.6 g/dL (6.4-8.9); eGFR CKD-EPI 49.2 (>60)
[2021-07-22 10:38] LABS: Magnesium 1.7 mg/dL (1.9-2.7)
[2021-07-22] MEDS ORDERED: Magnesium Sulfate 2 gm BAG 2 GM/50 ML BAG IVPB ONE (10:56)
[2021-07-22 11:05] LABS: Total Bilirubin 22.2 mg/dL (0.2-1.0)
[2021-07-22] MEDS: Potassium Chlor 20 meq TAB.ER PO SCH ×2 (12:20→15:14)
[2021-07-22] MEDS: Multivitamins ADULT w/MIN LIQ 15 ML UDC PO SCH (12:28)
[2021-07-22] MEDS: Sulfamethox/Trimethoprim DS TAB 800/160 mg PO SCH (21:02)
[2021-07-23 05:49] LABS: ABS Basophils 0.1 10^3/ul (0-0.2); ABS Eosinophils 0.6 10^3/ul (0-0.6); ABS Lymphocytes 1.4 10^3/ul (1.0-4.8); ABS Monocytes 0.9 10^3/ul (0-0.8); ABS Neutrophils 16.4 10^3/ul (1.5-7.7); Eosinophil % 3.2 %; Hematocrit 30 % (42-52); Hemoglobin 10.6 g/dL (14.0-18.0); Lymphocyte % 7.2 %; Mean Corpuscular HGB Conc 35 g/dL (31-36); Mean Corpuscular Hemoglobin 36 pg (27-31); Mean Corpuscular Volume 101 fL (80-94); Mean Platelet Volume 7.1 fL (7.4-10.4); Platelet Count 175 10^3/uL (150-450); Red Blood Count 2.99 10^6 /uL (4.18-5.48); Red Cell Distribution Width 15 % (10-15); White Blood Count 19.4 10^3/uL (3.5-10.8)
[2021-07-23 06:55] LABS: Albumin 2.7 g/dL (3.2-5.2); Albumin/Globulin Ratio 2.7 (1-3); Calcium 7.6 mg/dL (8.6-10.3); Potassium 3.5 mmol/L (3.5-5.0); Total Protein 3.7 g/dL (6.4-8.9); eGFR CKD-EPI 57.2 (>60)
[2021-07-23 07:15] LABS: Magnesium 2.1 mg/dL (1.9-2.7)
[2021-07-23 07:16] LABS: Total Bilirubin 22.8 mg/dL (0.2-1.0)
[2021-07-23 08:52] LABS: INR 2.42 (0.86-1.15)
[2021-07-23] MEDS: Aspirin EC 81 mg TAB.EC (enteric coated) PO SCH (09:52)
[2021-07-23] MEDS: Pantoprazole VIAL 40 MG VIAL IV SCH ×2 (09:52→21:59)
[2021-07-23] MEDS: Lactulose 30 ml UDC PO SCH ×3 (09:53→22:00)
[2021-07-23] MEDS: Multivitamins ADULT w/MIN LIQ 15 ML UDC PO SCH (09:55)
[2021-07-23] MEDS: Heparin 5000 UNITS/ML 1 mL VIAL SUBCUT SCH (21:59)
[2021-07-23] MEDS: Sulfamethox/Trimethoprim DS TAB 800/160 mg PO SCH (22:00)
[2021-07-24] MEDS: Heparin 5000 UNITS/ML 1 mL VIAL SUBCUT SCH ×3 (05:58→20:13)
[2021-07-24] MEDS: Aspirin EC 81 mg TAB.EC (enteric coated) PO SCH (09:38)
[2021-07-24] MEDS: Lactulose 30 ml UDC PO SCH ×3 (09:38→20:11)
[2021-07-24] MEDS: Multivitamins ADULT w/MIN LIQ 15 ML UDC PO SCH (09:39)
[2021-07-24] MEDS: Pantoprazole VIAL 40 MG VIAL IV SCH ×2 (09:39→20:14)
[2021-07-24] MEDS: Sulfamethox/Trimethoprim DS TAB 800/160 mg PO SCH (22:54)
[2021-07-25] MEDS: Heparin 5000 UNITS/ML 1 mL VIAL SUBCUT SCH ×3 (04:34→20:14)
[2021-07-25 04:42] LABS: ABS Basophils 0.1 10^3/ul (0-0.2); ABS Eosinophils 0.5 10^3/ul (0-0.6); ABS Lymphocytes 1.5 10^3/ul (1.0-4.8); ABS Monocytes 0.9 10^3/ul (0-0.8); ABS Neutrophils 15.9 10^3/ul (1.5-7.7); Eosinophil % 2.5 %; Hematocrit 31 % (42-52); Hemoglobin 10.4 g/dL (14.0-18.0); Lymphocyte % 8.1 %; Mean Corpuscular HGB Conc 34 g/dL (31-36); Mean Corpuscular Hemoglobin 35 pg (27-31); Mean Corpuscular Volume 103 fL (80-94); Mean Platelet Volume 7.9 fL (7.4-10.4); Platelet Count 174 10^3/uL (150-450); Red Blood Count 2.98 10^6 /uL (4.18-5.48); Red Cell Distribution Width 16 % (10-15)
[2021-07-25 05:06] LABS: Albumin 2.6 g/dL (3.2-5.2); Albumin/Globulin Ratio 2.4 (1-3); Calcium 7.6 mg/dL (8.6-10.3); Globulin 1.1 g/dL (2-4); Potassium 3.8 mmol/L (3.5-5.0); Total Protein 3.7 g/dL (6.4-8.9); eGFR CKD-EPI 56.7 (>60)
[2021-07-25] MEDS: Aspirin EC 81 mg TAB.EC (enteric coated) PO SCH (10:29)
[2021-07-25] MEDS: Lactulose 30 ml UDC PO SCH ×3 (10:29→20:13)
[2021-07-25] MEDS: Pantoprazole VIAL 40 MG VIAL IV SCH ×2 (10:31→20:14)
[2021-07-25] MEDS: Multivitamins ADULT w/MIN LIQ 15 ML UDC PO SCH (10:45)
[2021-07-25] MEDS ORDERED: Albuterol HFA INHALER 8 gm MDI INH PRN (16:18)
[2021-07-25] MEDS: Sulfamethox/Trimethoprim DS TAB 800/160 mg PO SCH (20:11)
[2021-07-26 05:41] LABS: ABS Basophils 0.1 10^3/ul (0-0.2); ABS Eosinophils 0.5 10^3/ul (0-0.6); ABS Lymphocytes 1.7 10^3/ul (1.0-4.8); ABS Monocytes 0.9 10^3/ul (0-0.8); ABS Neutrophils 14.1 10^3/ul (1.5-7.7); Eosinophil % 2.7 %; Hematocrit 29 % (42-52); Hemoglobin 9.8 g/dL (14.0-18.0); Lymphocyte % 9.7 %; Mean Corpuscular HGB Conc 34 g/dL (31-36); Mean Corpuscular Hemoglobin 35 pg (27-31); Mean Corpuscular Volume 102 fL (80-94); Mean Platelet Volume 7.2 fL (7.4-10.4); Platelet Count 180 10^3/uL (150-450); Red Cell Distribution Width 16 % (10-15); White Blood Count 17.3 10^3/uL (3.5-10.8)
[2021-07-26] MEDS: Heparin 5000 UNITS/ML 1 mL VIAL SUBCUT SCH ×2 (10:18→20:59)
[2021-07-26] MEDS: Lactulose 30 ml UDC PO SCH ×3 (10:18→20:57)
[2021-07-26] MEDS: Aspirin EC 81 mg TAB.EC (enteric coated) PO SCH (10:18)
[2021-07-26] MEDS: Multivitamins ADULT w/MIN LIQ 15 ML UDC PO SCH (10:18)
[2021-07-26] MEDS: Pantoprazole VIAL 40 MG VIAL IV SCH ×2 (10:19→20:59)
[2021-07-26] MEDS: Sulfamethox/Trimethoprim DS TAB 800/160 mg PO SCH (20:56)
[2021-07-27 06:27] LABS: ABS Basophils 0.1 10^3/ul (0-0.2); ABS Eosinophils 0.4 10^3/ul (0-0.6); ABS Lymphocytes 1.6 10^3/ul (1.0-4.8); ABS Monocytes 0.9 10^3/ul (0-0.8); ABS Neutrophils 11.8 10^3/ul (1.5-7.7); Hematocrit 28 % (42-52); Hemoglobin 9.7 g/dL (14.0-18.0); Lymphocyte % 10.7 %; Mean Corpuscular HGB Conc 34 g/dL (31-36); Mean Corpuscular Hemoglobin 35 pg (27-31); Mean Corpuscular Volume 103 fL (80-94); Mean Platelet Volume 7.6 fL (7.4-10.4); Platelet Count 188 10^3/uL (150-450); Red Blood Count 2.75 10^6 /uL (4.18-5.48); Red Cell Distribution Width 16 % (10-15); White Blood Count 14.8 10^3/uL (3.5-10.8)
[2021-07-27 07:13] LABS: ALT 45 U/L (7-52); AST 91 U/L (13-39); Albumin 2.6 g/dL (3.2-5.2); Alkaline Phosphatase 175 U/L (35-149); Anion Gap 6 mmol/L (2-11); Blood Urea Nitrogen 27 mg/dL (6-24); CO2 Carbon Dioxide 26 mmol/L (22-32); Calcium 7.7 mg/dL (8.6-10.3); Chloride 103 mmol/L (101-111); Globulin 1.3 g/dL (2-4); Glucose 79 mg/dL (70-100); Iron 56 ug/dL (50-212); Potassium 4.3 mmol/L (3.5-5.0); Sodium 135 mmol/L (135-145); Total Protein 3.9 g/dL (6.4-8.9); Transferrin < 75 mg/dL (203-362); eGFR CKD-EPI 70.8 (>60)
[2021-07-27 07:14] LABS: % Iron Saturation 53 % (15-55); Total Iron Binding Capacity 105 mcg/dL (250-450); Unsaturated Iron Binding 49 ug/dL
[2021-07-27 07:33] LABS: Ferritin 725.7 ng/mL (24-336)
[2021-07-27 07:37] LABS: Folate 13.01 ng/mL (5.90-24.80); Vitamin B12 > 1450 pg/mL (180-914)
[2021-07-27] MEDS: Aspirin EC 81 mg TAB.EC (enteric coated) PO SCH (08:03)
[2021-07-27] MEDS: Multivitamins ADULT w/MIN LIQ 15 ML UDC PO SCH (08:04)
[2021-07-27] MEDS: Heparin 5000 UNITS/ML 1 mL VIAL SUBCUT SCH ×2 (08:04→21:50)
[2021-07-27] MEDS: Pantoprazole VIAL 40 MG VIAL IV SCH ×2 (08:04→21:51)
[2021-07-27] MEDS: Lactulose 30 ml UDC PO SCH ×3 (08:04→21:51)
[2021-07-27 11:04] LABS: C Reactive Protein 37.48 mg/L (<8.01)
[2021-07-27] MEDS: Sulfamethox/Trimethoprim DS TAB 800/160 mg PO SCH (21:58)
[2021-07-28 06:10] LABS: ABS Basophils 0.1 10^3/ul (0-0.2); ABS Eosinophils 0.4 10^3/ul (0-0.6); ABS Lymphocytes 1.8 10^3/ul (1.0-4.8); ABS Monocytes 0.8 10^3/ul (0-0.8); ABS Neutrophils 10.1 10^3/ul (1.5-7.7); Hematocrit 28 % (42-52); Hemoglobin 9.5 g/dL (14.0-18.0); Lymphocyte % 13.9 %; Mean Corpuscular HGB Conc 34 g/dL (31-36); Mean Corpuscular Hemoglobin 35 pg (27-31); Mean Corpuscular Volume 103 fL (80-94); Mean Platelet Volume 7.8 fL (7.4-10.4); Platelet Count 218 10^3/uL (150-450); Red Blood Count 2.72 10^6 /uL (4.18-5.48); Red Cell Distribution Width 16 % (10-15); White Blood Count 13.2 10^3/uL (3.5-10.8)
[2021-07-28 06:18] LABS: INR 1.89 (0.86-1.15)
[2021-07-28 06:35] LABS: Albumin 2.6 g/dL (3.2-5.2); Albumin/Globulin Ratio 1.9 (1-3); Calcium 7.8 mg/dL (8.6-10.3); Globulin 1.4 g/dL (2-4); Potassium 4.7 mmol/L (3.5-5.0); eGFR CKD-EPI 78.2 (>60)
[2021-07-28] MEDS: Pantoprazole VIAL 40 MG VIAL IV SCH ×2 (10:44→21:07)
[2021-07-28] MEDS: Heparin 5000 UNITS/ML 1 mL VIAL SUBCUT SCH ×2 (10:44→21:08)
[2021-07-28] MEDS: Lactulose 30 ml UDC PO SCH ×3 (10:54→21:06)
[2021-07-28] MEDS: Multivitamins ADULT w/MIN LIQ 15 ML UDC PO SCH (10:54)
[2021-07-28] MEDS: Aspirin EC 81 mg TAB.EC (enteric coated) PO SCH (10:54)
[2021-07-28] MEDS: Sulfamethox/Trimethoprim DS TAB 800/160 mg PO SCH (21:03)
[2021-07-29 08:49] LABS: ABS Basophils 0.2 10^3/ul (0-0.2); ABS Eosinophils 0.4 10^3/ul (0-0.6); ABS Lymphocytes 1.6 10^3/ul (1.0-4.8); ABS Monocytes 0.8 10^3/ul (0-0.8); Eosinophil % 3.4 %; Hematocrit 29 % (42-52); Hemoglobin 9.9 g/dL (14.0-18.0); Lymphocyte % 12.5 %; Mean Corpuscular HGB Conc 35 g/dL (31-36); Mean Corpuscular Hemoglobin 36 pg (27-31); Mean Corpuscular Volume 104 fL (80-94); Mean Platelet Volume 7.5 fL (7.4-10.4); Platelet Count 231 10^3/uL (150-450); Red Blood Count 2.76 10^6 /uL (4.18-5.48); Red Cell Distribution Width 17 % (10-15)
[2021-07-29 08:55] LABS: INR 1.77 (0.86-1.15)
[2021-07-29 09:19] LABS: Albumin 2.7 g/dL (3.2-5.2); Albumin/Globulin Ratio 1.7 (1-3); Calcium 8.1 mg/dL (8.6-10.3); Globulin 1.6 g/dL (2-4); Potassium 4.9 mmol/L (3.5-5.0); Total Protein 4.3 g/dL (6.4-8.9); eGFR CKD-EPI 79.1 (>60)
[2021-07-29] MEDS: Aspirin EC 81 mg TAB.EC (enteric coated) PO SCH (09:20)
[2021-07-29] MEDS: Pantoprazole VIAL 40 MG VIAL IV SCH (09:20)
[2021-07-29] MEDS: Heparin 5000 UNITS/ML 1 mL VIAL SUBCUT SCH ×2 (09:20→21:44)
[2021-07-29] MEDS: Lactulose 30 ml UDC PO SCH ×3 (09:21→21:44)
[2021-07-29] MEDS: Multivitamins ADULT w/MIN LIQ 15 ML UDC PO SCH (09:21)
[2021-07-29 10:08] LABS: Total Bilirubin 14.4 mg/dL (0.2-1.0)
[2021-07-29] MEDS: Sulfamethox/Trimethoprim DS TAB 800/160 mg PO SCH (21:44)
[2021-07-30 05:35] LABS: ABS Basophils 0.1 10^3/ul (0-0.2); ABS Eosinophils 0.4 10^3/ul (0-0.6); ABS Lymphocytes 1.6 10^3/ul (1.0-4.8); ABS Monocytes 0.6 10^3/ul (0-0.8); ABS Neutrophils 8.3 10^3/ul (1.5-7.7); Eosinophil % 3.8 %; Hematocrit 27 % (42-52); Hemoglobin 9.3 g/dL (14.0-18.0); Lymphocyte % 14.6 %; Mean Corpuscular HGB Conc 34 g/dL (31-36); Mean Corpuscular Hemoglobin 36 pg (27-31); Mean Corpuscular Volume 105 fL (80-94); Mean Platelet Volume 7.5 fL (7.4-10.4); Nucleated Red Blood Cells % 0.1; Platelet Count 244 10^3/uL (150-450); Red Blood Count 2.59 10^6 /uL (4.18-5.48); Red Cell Distribution Width 17 % (10-15); White Blood Count 11.1 10^3/uL (3.5-10.8)
[2021-07-30 05:58] LABS: Albumin 2.6 g/dL (3.2-5.2); Albumin/Globulin Ratio 1.6 (1-3); Calcium 7.8 mg/dL (8.6-10.3); Globulin 1.6 g/dL (2-4); Potassium 4.4 mmol/L (3.5-5.0); Total Protein 4.2 g/dL (6.4-8.9); eGFR CKD-EPI 74.7 (>60)
[2021-07-30 06:02] LABS: INR 1.7 (0.86-1.15); Total Bilirubin 12.8 mg/dL (0.2-1.0)
[2021-07-30] MEDS: Heparin 5000 UNITS/ML 1 mL VIAL SUBCUT SCH (09:41)
[2021-07-30] MEDS: Lactulose 30 ml UDC PO SCH ×3 (09:41→23:16)
[2021-07-30] MEDS: Aspirin EC 81 mg TAB.EC (enteric coated) PO SCH (09:42)
[2021-07-30] MEDS: Multivitamins ADULT w/MIN LIQ 15 ML UDC PO SCH (09:42)
[2021-07-30] MEDS: Pantoprazole VIAL 40 MG VIAL IV SCH (09:43)
[2021-07-30] MEDS ORDERED: fentaNYL 100 mcg/2 ml 50 MCG/ML VIAL ONE (14:25)
[2021-07-30 17:24] LABS: Body Fluid WBC 89 /mcL
[2021-07-30 17:37] LABS: Body Fluid Appearance Clear; Body Fluid Color Yellow; Body Fluid Mono 52 %; Body Fluid Source Peritonial Fluid; Body Fluid Total Cells Counted 200
[2021-07-30] MEDS ORDERED: Norepinephrine 16MCG/ML BAGD5W 4,000 MCG/250 ML BAG IV SCH (18:00)
[2021-07-30] MEDS: Albumin Human 25% 25 GM/100 ML BTL IV SCH ×2 (18:17→19:03)
[2021-07-30] MEDS ORDERED: Norepinephrine 16MCG/ML BAGD5W 0 MCG/0 ML BAG IV ONE (18:25)
[2021-07-30] MEDS ORDERED: Iohexol 300 (CONTRAST) 10 ML SDV IV ONE (19:26)
[2021-07-30] MEDS: Morphine 2 MG/ML SYRINGE IV PRN (19:45)
[2021-07-30 19:58] LABS: INR 2.18 (0.86-1.15)
[2021-07-30 19:59] LABS: Hematocrit 16 % (42-52); Mean Corpuscular HGB Conc 34 g/dL (31-36); Mean Corpuscular Hemoglobin 37 pg (27-31); Mean Corpuscular Volume 107 fL (80-94); Mean Platelet Volume 7.3 fL (7.4-10.4); Platelet Count 215 10^3/uL (150-450); Red Blood Count 1.53 10^6 /uL (4.18-5.48); Red Cell Distribution Width 18 % (10-15); White Blood Count 11.1 10^3/uL (3.5-10.8)
[2021-07-30 20:46] LABS: Albumin 3.3 g/dL (3.2-5.2); Albumin/Globulin Ratio 3.7 (1-3); Calcium 7.6 mg/dL (8.6-10.3); Globulin 0.9 g/dL (2-4); Hemoglobin 5.6 g/dL (14.0-18.0); Potassium 4.5 mmol/L (3.5-5.0); Total Bilirubin 8.7 mg/dL (0.2-1.0); Total Protein 4.2 g/dL (6.4-8.9); eGFR CKD-EPI 57.7 (>60)
[2021-07-30] MEDS ORDERED: Morphine 2 MG/ML SYRINGE IV ONE (21:10)
[2021-07-30] MEDS ORDERED: Iodixanol (CONTRAST) 320 MG/ML 100 ML SDV IV ONE (21:46)
[2021-07-30] MEDS: Saline FLUSH-CENTRAL 10 ML SYRINGE CENT\\PICC SCH (22:59)
[2021-07-30] MEDS: Sulfamethox/Trimethoprim DS TAB 800/160 mg PO SCH (23:18)
[2021-07-31 03:58] LABS: Hematocrit 21 % (42-52); Hemoglobin 7.1 g/dL (14.0-18.0)
[2021-07-31 05:45] LABS: INR 1.79 (0.86-1.15)
[2021-07-31 06:19] LABS: Albumin 2.9 g/dL (3.2-5.2); Albumin/Globulin Ratio 2.6 (1-3); Calcium 7.9 mg/dL (8.6-10.3); Globulin 1.1 g/dL (2-4); Potassium 4.6 mmol/L (3.5-5.0); Total Bilirubin 11.7 mg/dL (0.2-1.0); eGFR CKD-EPI 66.5 (>60)
[2021-07-31] MEDS: Multivitamins ADULT w/MIN LIQ 15 ML UDC PO SCH (07:50)
[2021-07-31] MEDS: Morphine 2 MG/ML SYRINGE IV PRN ×2 (07:51→22:03)
[2021-07-31] MEDS: Pantoprazole VIAL 40 MG VIAL IV SCH (07:51)
[2021-07-31] MEDS: Lactulose 30 ml UDC PO SCH ×3 (07:52→21:36)
[2021-07-31] MEDS: Saline FLUSH-CENTRAL 10 ML SYRINGE CENT\\PICC SCH ×2 (08:16→21:37)
[2021-07-31 08:24] LABS: Hematocrit 18 % (42-52); Hemoglobin 6.2 g/dL (14.0-18.0)
[2021-07-31 09:45] LABS: Mean Platelet Volume 7.3 fL (7.4-10.4); Platelet Count 168 10^3/uL (150-450)
[2021-07-31 10:38] LABS: ABS Basophils 0.1 10^3/ul (0-0.2); ABS Eosinophils 0.2 10^3/ul (0-0.6); ABS Lymphocytes 1.6 10^3/ul (1.0-4.8); ABS Monocytes 0.7 10^3/ul (0-0.8); ABS Neutrophils 8.7 10^3/ul (1.5-7.7); Hematocrit 18 % (42-52); Hemoglobin 6.4 g/dL (14.0-18.0); Lymphocyte % 13.8 %; Mean Corpuscular HGB Conc 35 g/dL (31-36); Mean Corpuscular Hemoglobin 33 pg (27-31); Mean Corpuscular Volume 93 fL (80-94); Mean Platelet Volume 6.9 fL (7.4-10.4); Platelet Count 176 10^3/uL (150-450); Red Blood Count 1.97 10^6 /uL (4.18-5.48); Red Cell Distribution Width 23 % (10-15); White Blood Count 11.3 10^3/uL (3.5-10.8)
[2021-07-31] MEDS ORDERED: Heparin 2 UNITS/ML IVPREMIX 3,000 UNIT/1,500 ML BAG IV ONE (11:06)
[2021-07-31] MEDS ORDERED: Iohexol 350 (CONTRAST) 200 ML MDV IV ONE (11:06)
[2021-07-31] MEDS ORDERED: Lidocaine 1% MPF 5 ML VIAL ONE (11:06)
[2021-07-31] MEDS ORDERED: Midazolam 5 mg/5 ml VIAL 1 mg/ml 5 ml VIAL (5 mg) ONE (11:30)
[2021-07-31] MEDS ORDERED: fentaNYL 100 mcg/2 ml 50 MCG/ML VIAL ONE (11:30)
[2021-07-31] MEDS: Heparin 5000 UNITS/ML 1 mL VIAL SUBCUT SCH (12:50)
[2021-07-31] MEDS ORDERED: Lactated Ringers 500 ml BAG 500 ML IV SCH (15:00)
[2021-07-31 18:54] LABS: ABS Basophils 0.1 10^3/ul (0-0.2); ABS Eosinophils 0.4 10^3/ul (0-0.6); ABS Lymphocytes 1.4 10^3/ul (1.0-4.8); ABS Monocytes 0.7 10^3/ul (0-0.8); ABS Neutrophils 9.7 10^3/ul (1.5-7.7); Eosinophil % 3.4 %; Hematocrit 23 % (42-52); Hemoglobin 8.2 g/dL (14.0-18.0); Lymphocyte % 11.5 %; Mean Corpuscular HGB Conc 35 g/dL (31-36); Mean Corpuscular Hemoglobin 31 pg (27-31); Mean Corpuscular Volume 90 fL (80-94); Platelet Count 186 10^3/uL (150-450); Red Blood Count 2.61 10^6 /uL (4.18-5.48); Red Cell Distribution Width 25 % (10-15); White Blood Count 12.4 10^3/uL (3.5-10.8)
[2021-07-31] MEDS: Sulfamethox/Trimethoprim DS TAB 800/160 mg PO SCH (21:37)
[2021-07-31 22:51] LABS: Hematocrit 24 % (42-52); Hemoglobin 8.1 g/dL (14.0-18.0); Mean Corpuscular HGB Conc 34 g/dL (31-36); Mean Corpuscular Hemoglobin 31 pg (27-31); Mean Corpuscular Volume 90 fL (80-94); Mean Platelet Volume 7.1 fL (7.4-10.4); Platelet Count 184 10^3/uL (150-450); Red Blood Count 2.62 10^6 /uL (4.18-5.48); Red Cell Distribution Width 25 % (10-15); White Blood Count 11.7 10^3/uL (3.5-10.8)
[2021-07-31 23:14] LABS: ABS Basophils 0.1 10^3/ul (0-0.2); ABS Eosinophils 0.4 10^3/ul (0-0.6); ABS Lymphocytes 1.3 10^3/ul (1.0-4.8); ABS Monocytes 0.8 10^3/ul (0-0.8); ABS Neutrophils 9.1 10^3/ul (1.5-7.7); Eosinophil % 3.7 %; Lymphocyte % 11.4 %
[2021-08-01 05:08] LABS: Hematocrit 25 % (42-52); Hemoglobin 8.4 g/dL (14.0-18.0); Mean Corpuscular HGB Conc 34 g/dL (31-36); Mean Corpuscular Hemoglobin 31 pg (27-31); Mean Corpuscular Volume 91 fL (80-94); Mean Platelet Volume 7.5 fL (7.4-10.4); Platelet Count 197 10^3/uL (150-450); Red Cell Distribution Width 26 % (10-15); White Blood Count 11.7 10^3/uL (3.5-10.8)
[2021-08-01 05:19] LABS: ABS Basophils 0.1 10^3/ul (0-0.2); ABS Eosinophils 0.4 10^3/ul (0-0.6); ABS Lymphocytes 1.4 10^3/ul (1.0-4.8); ABS Monocytes 0.8 10^3/ul (0-0.8); Eosinophil % 3.5 %; Lymphocyte % 11.9 %
[2021-08-01 05:49] LABS: Albumin/Globulin Ratio 2.3 (1-3); Calcium 8.2 mg/dL (8.6-10.3); Globulin 1.3 g/dL (2-4); Magnesium 1.5 mg/dL (1.9-2.7); Phosphorus 3.1 mg/dL (2.5-5.0); Potassium 4.3 mmol/L (3.5-5.0); Total Bilirubin 11.4 mg/dL (0.2-1.0); Total Protein 4.3 g/dL (6.4-8.9)
[2021-08-01] MEDS: Morphine 2 MG/ML SYRINGE IV PRN ×3 (07:27→23:33)
[2021-08-01] MEDS: Saline FLUSH-CENTRAL 10 ML SYRINGE CENT\\PICC SCH ×2 (09:02→20:16)
[2021-08-01] MEDS: Lactulose 30 ml UDC PO SCH ×3 (09:02→20:16)
[2021-08-01] MEDS: Multivitamins ADULT w/MIN LIQ 15 ML UDC PO SCH (09:02)
[2021-08-01] MEDS: Pantoprazole VIAL 40 MG VIAL IV SCH (09:03)
[2021-08-01] MEDS ORDERED: Magnesium Sulfate 2 gm BAG 2 GM/50 ML BAG IVPB ONE (11:02)
[2021-08-01 13:07] LABS: BF PH 8.3
[2021-08-01 13:31] LABS: Albumin, BF 0.6 g/dL; Fluid Type, Albumin PERITONEAL; Fluid Type, Protein, Total PERITONEAL; Total Protein, BF 0.8 g/dL
[2021-08-01 14:37] LABS: Glucose, BF 120 mg/dL
[2021-08-01 14:39] LABS: Fluid Type PERITONEAL
[2021-08-01] MEDS: Sulfamethox/Trimethoprim DS TAB 800/160 mg PO SCH (20:16)
[2021-08-02 06:08] LABS: Hematocrit 25 % (42-52); Hemoglobin 8.2 g/dL (14.0-18.0); Mean Corpuscular HGB Conc 34 g/dL (31-36); Mean Corpuscular Hemoglobin 32 pg (27-31); Mean Corpuscular Volume 95 fL (80-94); Mean Platelet Volume 7.1 fL (7.4-10.4); Platelet Count 236 10^3/uL (150-450); Red Blood Count 2.59 10^6 /uL (4.18-5.48); Red Cell Distribution Width 26 % (10-15); White Blood Count 10.9 10^3/uL (3.5-10.8)
[2021-08-02 06:20] LABS: INR 1.68 (0.86-1.15)
[2021-08-02 06:31] LABS: ABS Basophils 0.1 10^3/ul (0-0.2); ABS Eosinophils 0.4 10^3/ul (0-0.6); ABS Lymphocytes 1.3 10^3/ul (1.0-4.8); ABS Monocytes 0.8 10^3/ul (0-0.8); ABS Neutrophils 8.2 10^3/ul (1.5-7.7); Anisocytosis 2+; Eosinophil % 3.8 %; Lymphocyte % 11.9 %; Macrocytosis 1+; Polychromasia 1+
[2021-08-02 06:42] LABS: Albumin 2.8 g/dL (3.2-5.2); Albumin/Globulin Ratio 1.9 (1-3); Calcium 8.1 mg/dL (8.6-10.3); Globulin 1.5 g/dL (2-4); Potassium 4.3 mmol/L (3.5-5.0); Total Bilirubin 10.2 mg/dL (0.2-1.0); Total Protein 4.3 g/dL (6.4-8.9)
[2021-08-02] MEDS: Multivitamins ADULT w/MIN LIQ 15 ML UDC PO SCH (09:39)
[2021-08-02] MEDS: Lactulose 30 ml UDC PO SCH ×3 (09:39→22:19)
[2021-08-02] MEDS: Pantoprazole VIAL 40 MG VIAL IV SCH (09:39)
[2021-08-02] MEDS: Saline FLUSH-CENTRAL 10 ML SYRINGE CENT\\PICC SCH ×2 (09:40→22:30)
[2021-08-02] MEDS: Morphine 2 MG/ML SYRINGE IV PRN (12:08)
[2021-08-02] MEDS: Sulfamethox/Trimethoprim DS TAB 800/160 mg PO SCH (22:19)
[2021-08-03] MEDS: Morphine 2 MG/ML SYRINGE IV PRN (00:05)
[2021-08-03 07:22] LABS: PSA Screening Total 4.692 ng/mL (0-4.000)
[2021-08-03 09:01] LABS: Hematocrit 27 % (42-52); Hemoglobin 9.2 g/dL (14.0-18.0); Mean Corpuscular HGB Conc 34 g/dL (31-36); Mean Corpuscular Hemoglobin 33 pg (27-31); Mean Corpuscular Volume 96 fL (80-94); Platelet Count 248 10^3/uL (150-450); Red Blood Count 2.82 10^6 /uL (4.18-5.48); Red Cell Distribution Width 27 % (10-15); White Blood Count 10.2 10^3/uL (3.5-10.8)
[2021-08-03 09:05] LABS: ABS Basophils 0.1 10^3/ul (0-0.2); ABS Eosinophils 0.4 10^3/ul (0-0.6); ABS Monocytes 0.8 10^3/ul (0-0.8); ABS Neutrophils 7.9 10^3/ul (1.5-7.7); Eosinophil % 4.1 %; Lymphocyte % 10.2 %
[2021-08-03 09:07] LABS: INR 1.79 (0.86-1.15)
[2021-08-03] MEDS: Lactulose 30 ml UDC PO SCH ×3 (09:12→21:13)
[2021-08-03] MEDS: Pantoprazole VIAL 40 MG VIAL IV SCH (09:17)
[2021-08-03] MEDS: Saline FLUSH-CENTRAL 10 ML SYRINGE CENT\\PICC SCH ×2 (09:20→21:16)
[2021-08-03] MEDS: Multivitamins ADULT w/MIN LIQ 15 ML UDC PO SCH (09:28)
[2021-08-03 09:40] LABS: Albumin 2.8 g/dL (3.2-5.2); Albumin/Globulin Ratio 1.8 (1-3); Calcium 7.9 mg/dL (8.6-10.3); Globulin 1.6 g/dL (2-4); Potassium 4.3 mmol/L (3.5-5.0); Total Protein 4.4 g/dL (6.4-8.9); eGFR CKD-EPI 88.3 (>60)
[2021-08-03 13:38] LABS: Rapid COVID-19 Molecular Undetected (Undetected)
[2021-08-03] MEDS: Sulfamethox/Trimethoprim DS TAB 800/160 mg PO SCH (21:13)
[2021-08-04 04:47] LABS: Hematocrit 25 % (42-52); Hemoglobin 8.6 g/dL (14.0-18.0); Mean Corpuscular HGB Conc 34 g/dL (31-36); Mean Corpuscular Hemoglobin 33 pg (27-31); Mean Corpuscular Volume 96 fL (80-94); Mean Platelet Volume 6.8 fL (7.4-10.4); Platelet Count 245 10^3/uL (150-450); Red Blood Count 2.59 10^6 /uL (4.18-5.48); Red Cell Distribution Width 27 % (10-15); White Blood Count 9.4 10^3/uL (3.5-10.8)
[2021-08-04 04:50] LABS: ABS Basophils 0.1 10^3/ul (0-0.2); ABS Eosinophils 0.5 10^3/ul (0-0.6); ABS Lymphocytes 1.2 10^3/ul (1.0-4.8); ABS Monocytes 0.8 10^3/ul (0-0.8); ABS Neutrophils 6.9 10^3/ul (1.5-7.7); Eosinophil % 4.8 %; Lymphocyte % 12.5 %
[2021-08-04 04:52] LABS: INR 1.79 (0.86-1.15)
[2021-08-04 05:19] LABS: Albumin 2.7 g/dL (3.2-5.2); Albumin/Globulin Ratio 1.8 (1-3); Calcium 7.9 mg/dL (8.6-10.3); Globulin 1.5 g/dL (2-4); Potassium 4.1 mmol/L (3.5-5.0); Total Bilirubin 10.4 mg/dL (0.2-1.0); Total Protein 4.2 g/dL (6.4-8.9); eGFR CKD-EPI 89.4 (>60)
[2021-08-04 07:40] VITALS: BP 94/61
[2021-08-04] MEDS: Lactulose 30 ml UDC PO SCH (08:39)
[2021-08-04] MEDS: Pantoprazole VIAL 40 MG VIAL IV SCH (08:39)
[2021-08-04] MEDS: Saline FLUSH-CENTRAL 10 ML SYRINGE CENT\\PICC SCH (08:41)
== END 2021-08-04 14:40 | DRG 987 ==
LOC: ED 15:04 → SUATTDRO 20:29 → EDHOLD 20:29 → ICU 22:10 → MED 07-21 12:34 → ICU 07-30 18:36 → MEDTELE 08-02 12:00
PROVIDERS: ADMIT Internal Medicine; ATTEND Internal Medicine